=== PATIENT | male | born 1995 | race Caucasian/White ===

== ENCOUNTER 2018-02-02 09:55 | Emergency (ER) | payer SELFPAY ==
[2018-02-02] MEDS ORDERED: LIDOCAINE 1% MPF 2 ML AMPULE ONE ×2 (10:34→10:36)
--- NOTE | 2018-02-02 11:15 | RAD REPORT ---
EXAM DESCRIPTION: RAD - Hand Right 3 View - 02/02/2018 10:59 am CLINICAL HISTORY: laceration COMPARISON: Hand Right 3 View dated 08/27/2016; Hand Right 3 View dated 03/27/2013 FINDINGS: Soft tissue swelling affects the third and fourth digit. No fracture, dislocation or radio paque foreign body.
--- NOTE | 2018-02-02 11:35 | EDPHYS ---
Physician Documentation [facility] Name: Andrew Padilla Jr Age: 22 yrs Sex: Male : 1995 Arrival Date: 02/02/2018 Time: 10:07 Bed 15 Private MD: ED Physician Aaron Bautista HPI: 02/02 11:00 This 22 yrs old Male presents to ER via EMS with complaints of Laceration To pm1 Hand. 11:00 The patient has a laceration occurred at home. The laceration(s) is(are) located on the pm1 palmar aspect of proximal phalanx of right ring finger and palmar aspect of proximal phalanx of right little finger. Onset: The symptoms/episode began/occurred just prior to arrival. Associated signs and symptoms: Pertinent positives: numbness distal to laceration on 5th right finger, Pertinent negatives: deformity, suspected foreign body. The patient has not experienced similar symptoms in the past. The patient has not recently seen a physician. Patient stabbed a wall with his knife to test its sharpness and his hand slide down the knife and cut his 4th and 5th right fingers. Patient reports difficulty with bending the fingers lacerated.. Historical: - Allergies: 09:55 NKA; rb1 - Home Meds: 09:55 None [Active]; rb1 - PMHx: 09:55 None; rb1 - PSHx: 09:55 Appendectomy; ear surgery; rb1 - Immunization history:: Adult Immunizations up to date, Last tetanus immunization: up to date. - Social history:: Smoking status: Patient uses tobacco products, smokes one pack cigarettes per day. - Ebola Screening: : Patient negative for fever greater than or equal to 101.5 degrees Fahrenheit, and additional compatible Ebola Virus Disease symptoms. ROS: 11:00 Constitutional: Negative for fever, chills, and weight loss, Eyes: Negative for injury, pm1 pain, redness, and discharge, ENT: Negative for injury, pain, and discharge, Neck: Negative for injury, pain, and swelling, Cardiovascular: Negative for chest pain, palpitations, and edema, Respiratory: Negative for shortness of breath, cough, wheezing, and pleuritic chest pain, Abdomen/GI: Negative for abdominal pain, nausea, vomiting, diarrhea, and constipation, Back: Negative for injury and pain, : Negative for injury, bleeding, discharge, and swelling. 11:00 MS/extremity: Positive for decreased range of motion, laceration, of the palmar aspect of proximal phalanx of right ring finger and palmar aspect of proximal phalanx of right little finger, Negative for deformity. 11:00 Skin: Positive for laceration(s), of the palmar aspect of proximal phalanx of right little finger and palmar aspect of proximal phalanx of right ring finger. 11:00 Neuro: Positive for numbness, tip of right 5 th finger. Exam: 11:00 Constitutional: This is a well developed, well nourished patient who is awake, alert, pm1 and in no acute distress. Head/Face: Normocephalic, atraumatic. Eyes: Pupils equal round and reactive to light, extra-ocular motions intact. Lids and lashes normal. Conjunctiva and sclera are non-icteric and not injected. Cornea within normal limits. Periorbital areas with no swelling, redness, or edema. ENT: Nares patent. No nasal discharge, no septal abnormalities noted. Tympanic membranes are normal and external auditory canals are clear. Oropharynx with no redness, swelling, or masses, exudates, or evidence of obstruction, uvula midline. Mucous membranes moist. Neck: Trachea midline, no thyromegaly or masses palpated, and no cervical lymphadenopathy. Supple, full range of motion without nuchal rigidity, or vertebral point tenderness. No Meningismus. Chest/axilla: Normal chest wall appearance and motion. Nontender with no deformity. No lesions are appreciated. Cardiovascular: Regular rate and rhythm with a normal S1 and S2. No gallops, murmurs, or rubs. Normal PMI, no JVD. No pulse deficits. Respiratory: Lungs have equal breath sounds bilaterally, clear to auscultation and percussion. No rales, rhonchi or wheezes noted. No increased work of breathing, no retractions or nasal flaring. Abdomen/GI: Soft, non-tender, with normal bowel sounds. No distension or tympany. No guarding or rebound. No evidence of tenderness throughout. Back: No spinal tenderness. No costovertebral tenderness. Full range of motion. Skin: Warm, dry with normal turgor. Normal color with no rashes, no lesions, and no evidence of cellulitis. 11:00 Musculoskeletal/extremity: Extremities: grossly normal except: noted in the palmar aspect of proximal phalanx of right ring finger and palmar aspect of proximal phalanx of right little finger: laceration, Circulation is intact in all extremities. Sensation intact to right 4th and 5th fingers. Vital Signs: 09:55 BP 118 / 83; Pulse 115; Resp 17; Temp 98.6(O); Pulse Ox 98% on R/A; Weight 65.77 kg rb1 (R); Height 5 ft. 9 in. (175.26 cm) (R); Pain 3/10; 10:49 BP 110 / 75; Pulse 105; Resp 16; Pulse Ox 95% on R/A; rb1 11:40 BP 113 / 83; Pulse 113; Resp 17; Pulse Ox 96% on R/A; Pain 0/10; rb1 09:55 Body Mass Index 21.41 (65.77 kg, 175.26 cm) rb1 Laceration: 11:26 Wound Repair of 2cm ( 0.8in ) subcutaneous laceration to palmar aspect of proximal pm1 phalanx of right ring finger and palmar aspect of proximal phalanx of right little finger. Linear shaped.. Distal neuro/vascular/tendon intact. Anesthesia: Digital block administered with 5 mls of 1% lidocaine. Wound prep: Extensive cleansing with betadine by nurse, Wound irrigation with saline by me, Wound explored extensively, Copious irrigation. Skin closed with 9 4-0 Prolene using simple sutures and sterile technique. Dressed with Neosporin, 4x4's. Patient tolerated well. MDM: 10:09 Patient medically screened. pm1 11:26 Data reviewed: vital signs. Data interpreted: Pulse oximetry: on room air is 95 %. pm1 Interpretation: normal. Counseling: I had a detailed discussion with the patient and/or guardian regarding: the historical points, exam findings, and any diagnostic results supporting the discharge/admit diagnosis, radiology results, the need for outpatient follow up, for definitive care, a hand specialist, to return to the emergency department if symptoms worsen or persist or if there are any questions or concerns that arise at home. 11:26 ED course: Patient able to bend right 5th finger about 50 degrees at PIP and 4th finger pm1 about 50 degrees at DIP. MIP to 4th and 5th FROM. Patient potential lacerated tendon and/or nerve to 4th and 5th finger. Patient instructed on the need to follow up with hand surgery for further evaluation and treatment to regain range of motion if possible. 02/02 10:16 Order name: Hand Right 3 View XRAY; Complete Time: 11:25 pm1 02/02 10:16 Order name: Prolene, Sutures; Complete Time: 11:52 pm1 02/02 10:16 Order name: Dressing - Wound; Complete Time: 11:52 pm1 02/02 10:16 Order name: Gloves, Sterile; Complete Time: 10:49 pm1 02/02 10:16 Order name: Setup Suture Tray; Complete Time: 10:49 pm1 Administered Medications: 11:00 Drug: Lidocaine (1 %) 5 ml Volume: 5 ml; Route: Infiltration; rb1 11:52 Not Given (Pt. is up to date on shot; provider notified): Tetanus-Diphtheria Toxoid rb1 Adult 0.5 ml IM once Disposition: 02/03 06:23 Co-signature as Attending Physician, Aaron Bautista MD I agree with the assessment and lucy plan of care. Disposition: 02/02/18 11:34 Discharged to Home. Impression: Laceration without foreign body of right little finger without damage to nail, Laceration without foreign body of right ring finger without damage to nail. - Condition is Stable. - Discharge Instructions: Laceration Care, Adult. - Prescriptions for Keflex 500 mg Oral Capsule - take 1 capsule by ORAL route every 12 hours for 10 days; 20 capsule. - Medication Reconciliation Form, Thank You Letter, Antibiotic Education, Prescription Opioid Use form. - Follow up: Saran Atkinson MD; When: 2 - 3 days; Reason: Wound Recheck, Recheck today's complaints, Continuance of care, Re-evaluation by your physician. Follow up: Emergency Department; When: As needed; Reason: Worsening of condition. - Problem is new. - Symptoms have improved. Signatures: Dispatcher [employer] Aaron Snell MD MD cha Barber, Rebecca, RN RN rb1 Rafi Giordano NP MIS MANAGER pm1 Corrections: (The following items were deleted from the chart) 02/02 11:54 11:34 02/02/2018 11:34 Discharged to Home. Impression: Laceration without foreign body rb1 of right little finger without damage to nail; Laceration without foreign body of right ring finger without damage to nail. Condition is Stable. Forms are Medication Reconciliation Form, Thank You Letter, Antibiotic Education, Prescription Opioid Use. Follow up: Saran Atkinson; When: 2 - 3 days; Reason: Wound Recheck, Recheck today's complaints, Continuance of care, Re-evaluation by your physician. Follow up: Emergency Department; When: As needed; Reason: Worsening of condition. Problem is new. Symptoms have improved. pm1
--- NOTE | 2018-02-02 11:35 | ER ---
Nurse's Notes [facility] Name: Andrew Padilla Jr Age: 22 yrs Sex: Male : 1995 Arrival Date: 02/02/2018 Time: 10:07 Bed 15 Private MD: Diagnosis: Laceration without foreign body of right little finger without damage to nail;Laceration without foreign body of right ring finger without damage to nail Presentation: 02/02 09:55 Presenting complaint: EMS states: Pt. is 22 yr old, A \T\ O x 4. Pt. was stabbing a knife rb1 in the wall to see how sharp it was and his hand slipped cutting his third and fourth digits on the right hand. The blood had clotted by the time EMS arrived. Vital signs were stable BP 108/71, P 115, 98% RA, Pain 3/10. c/o numbness to the digits. NKA and no medical history. Transition of care: patient was not received from another setting of care. Complicating Factors: There are no complicating factors for this patient. Onset of symptoms was February 02, 2018. Risk Assessment: Do you want to hurt yourself or someone else? Patient reports no desire to harm self or others. Initial Sepsis Screen: Does the patient meet any 2 criteria? No. Patient's initial sepsis screen is negative. Does the patient have a suspected source of infection? No. Patient's initial sepsis screen is negative. Care prior to arrival: None. 09:55 Method Of Arrival: EMS: [facility] rb1 09:55 Acuity: [place] 3 rb1 Triage Assessment: 09:55 General: Appears in no apparent distress. comfortable, Behavior is calm, cooperative, rb1 Denies fever. Pain: Complains of pain in palmar aspect of proximal phalanx of right little finger and palmar aspect of proximal phalanx of right ring finger Pain currently is 3 out of 10 on a pain scale. Neuro: Level of Consciousness is awake, alert, obeys commands, Oriented to person, place, time, situation, Reports numbness in palmar aspect of proximal phalanx of right little finger and palmar aspect of proximal phalanx of right ring finger. Cardiovascular: Capillary refill < 3 seconds is brisk in bilateral fingers. Respiratory: Airway is patent Respiratory effort is even, unlabored, Respiratory pattern is regular, symmetrical. GI: No signs and/or symptoms were reported involving the gastrointestinal system. : No signs and/or symptoms were reported regarding the genitourinary system. Derm: Skin is pink, warm \T\ dry. Musculoskeletal: Range of motion: intact in all extremities. Injury Description: Laceration sustained to palmar aspect of proximal phalanx of right little finger and palmar aspect of proximal phalanx of right ring finger is contaminated, not bleeding. Historical: - Allergies: : NKA; rb1 - Home Meds: : None [Active]; rb1 - PMHx: : None; rb1 - PSHx: :55 Appendectomy; ear surgery; rb1 - Immunization history:: Adult Immunizations up to date, Last tetanus immunization: up to date. - Social history:: Smoking status: Patient uses tobacco products, smokes one pack cigarettes per day. - Ebola Screening: : Patient negative for fever greater than or equal to 101.5 degrees Fahrenheit, and additional compatible Ebola Virus Disease symptoms. Screenin:55 Abuse screen: Denies threats or abuse. Nutritional screening: No deficits noted. rb1 Tuberculosis screening: No symptoms or risk factors identified. Fall Risk None identified. Assessment: 09:55 General: See triage assessment. rb1 10:49 Reassessment: Patient appears in no apparent distress at this time. No changes from rb1 previously documented assessment. 11:40 Reassessment: Patient appears in no apparent distress at this time. Patient and/or rb1 family updated on plan of care and expected duration. Pain level reassessed. Patient is alert, oriented x 3, equal unlabored respirations, skin warm/dry/pink. Vital Signs: 09:55 BP 118 / 83; Pulse 115; Resp 17; Temp 98.6(O); Pulse Ox 98% on R/A; Weight 65.77 kg rb1 (R); Height 5 ft. 9 in. (175.26 cm) (R); Pain 3/10; 10:49 BP 110 / 75; Pulse 105; Resp 16; Pulse Ox 95% on R/A; rb1 11:40 BP 113 / 83; Pulse 113; Resp 17; Pulse Ox 96% on R/A; Pain 0/10; rb1 09:55 Body Mass Index 21.41 (65.77 kg, 175.26 cm) [facility] ED Course: :55 Arm band placed on left wrist. rb1 09:55 Patient has correct armband on for positive identification. Bed in low position. Call rb1 light in reach. Side rails up X 1. Pulse ox on. NIBP on. 10:07 Patient arrived in ED. rb1 10:07 Rafi Giordano NP is PHCP. pm1 10:07 Aaron Bautista MD is Attending Physician. pm1 10:12 Triage completed. rb1 10:49 Lupis Howard RN is Primary Nurse. rb1 10:56 X-ray completed. Portable x-ray completed in exam room. Patient tolerated procedure la2 well. 10:58 Hand Right 3 View XRAY In Process Unspecified. EDMS 11:33 Saran Atkinson MD is Referral Physician. pm1 11:54 No provider procedures requiring assistance completed. Patient did not have IV access rb1 during this emergency room visit. Administered Medications: 11:00 Drug: Lidocaine (1 %) 5 ml Volume: 5 ml; Route: Infiltration; rb1 11:52 Not Given (Pt. is up to date on shot; provider notified): Tetanus-Diphtheria Toxoid rb1 Adult 0.5 ml IM once Outcome: 11:34 Discharge ordered by MD. pm1 11:54 Discharged to home ambulatory. rb1 11:54 Condition: stable 11:54 Discharge instructions given to patient, Instructed on discharge instructions, follow up and referral plans. medication usage, Demonstrated understanding of instructions, follow-up care, medications, Prescriptions given X 1. 11:54 Patient left the ED. rb1 Signatures: Dispatcher [employer] EDVT Lupis Howard RN RN rb1 Rafi Giordano NP PULVERIZER OPERATOR pm1 Jenna Clarke la2
[2018-02-02 11:59] VITALS: TEMP 98.6
[2018-02-02 12:02] VITALS: BP 113/83; O2SAT 96
== END 2018-02-02 11:54 | disposition home or self-care (01) ==
LOC: ER 09:55
PROC: 0HQFXZZ Repair Right Hand Skin, External Approach (ICD-10-PCS; principal; 2018-02-02)
DX: S61.214A Laceration without foreign body of right ring finger without damage to nail, initial encounter (principal); S61.216A Laceration without foreign body of right little finger without damage to nail, initial encounter; F17.200 Nicotine dependence, unspecified, uncomplicated; W26.0XXA Contact with knife, initial encounter; Z23 Encounter for immunization
CPT/HCPCS: 99284; J2001

== ENCOUNTER 2018-09-14 00:57 | Emergency (ER) | payer SELFPAY ==
[2018-09-14 02:01] LABS: Absolute Lymphocytes (CBC) 1.8 K/uL (0.7-4.9); Absolute Monocytes 0.7 K/uL (0.1-1.3); Absolute Neutrophil 6.2 K/uL (1.8-8.0); Basophils % 0.5 % (0-1.3); Eosinophils % 0.7 % (0-4.4); Hematocrit 42.1 % (39.6-49.0); Lymphocytes % 20.8 % (15.3-44.8); Monocytes % 7.8 % (3.3-12.3); RBC Red Blood Cell Count 4.56 M/uL (4.33-5.43)
[2018-09-14] MEDS ORDERED: NA CHLORIDE 0.9% 1,000 ML ONE (02:06)
[2018-09-14 02:09] LABS: Protime INR 1.08
[2018-09-14 02:44] LABS: ALT/SGPT 21 U/L (12-78); AST/SGOT 10 U/L (15-37); Albumin 4.1 g/dL (3.4-5.0); Alkaline Phosphatase 61 U/L (45-117); BUN Blood Urea Nitrogen 18 mg/dL (7-18); Bicarbonate 26 mmol/L (21-32); Bilirubin Direct 0.2 mg/dL (0-0.2); Bilirubin Total 0.8 mg/dL (0.2-1.0); Glucose Level 93 mg/dL (74-106); Potassium 3.9 mmol/L (3.5-5.1); Protein, Total 7.2 g/dL (6.4-8.2); Sodium Level 145 mmol/L (136-145)
[2018-09-14 04:11] LABS: Barbiturates NEGATIVE (NEGATIVE); Benzodiazepines POSITIVE (NEGATIVE); Cocaine NEGATIVE (NEGATIVE); METHAMPHETAM POSITIVE (NEGATIVE); Methadone NEGATIVE (NEGATIVE); Opiates NEGATIVE (NEGATIVE); Phencyclidine NEGATIVE (NEGATIVE); THC Cannibis POSITIVE (NEGATIVE)
[2018-09-14 05:03] LABS: Urine Blood NEGATIVE (NEG); Urine Glucose NEGATIVE (NEG); Urine Protein 1+ (NEG); Urine Specific Gravity 1.025 (1.005-1.030)
[2018-09-14] MEDS ORDERED: MIDAZOLAM HCL 2 MG/2 ML INJ ONE (05:18)
--- NOTE | 2018-09-14 07:02 | ER ---
Nurse's Notes [facility] Name: Andrew Padilla Jr Age: 23 yrs Sex: Male : 1995 Arrival Date: 09/14/2018 Time: :01 Bed 17 Private MD: Diagnosis: Other psychoactive substance abuse with intoxication Presentation: 09/14 00:55 Presenting complaint: EMS states: "Patient had an argument with her girlfriend and took cc3 5 tablets of Xanax altogether at around 2230H last night; patient told the police officers that he intentionally did that so mental health health was contacted and was advised to bring the patient to the ER.". Transition of care: patient was not received from another setting of care. Onset of symptoms was September 13, 2018. Risk Assessment: Do you want to hurt yourself or someone else? Patient reports no desire to harm self or others. Initial Sepsis Screen: Does the patient meet any 2 criteria? No. Patient's initial sepsis screen is negative. Does the patient have a suspected source of infection? No. Patient's initial sepsis screen is negative. Care prior to arrival: None. 00:55 Method Of Arrival: EMS: [facility] cc3 00:55 Acuity: [place] 2 cc3 Triage Assessment: 00:55 General: Appears in no apparent distress. comfortable, Behavior is calm, cooperative. cc3 Pain: Denies pain. EENT: No signs and/or symptoms were reported regarding the EENT system. Neuro: Level of Consciousness is awake, alert, obeys commands, Oriented to person, place, time, situation, Appropriate for age. Cardiovascular: Patient's skin is warm and dry. Respiratory: Airway is patent Respiratory effort is even, unlabored, Respiratory pattern is regular, symmetrical. GI: Abdomen is flat. : No signs and/or symptoms were reported regarding the genitourinary system. Derm: noticed generalized dry healed wounds all over his body. Musculoskeletal: Circulation, motion, and sensation intact. Range of motion: intact in all extremities. Historical: - Allergies: 00:55 NKA; cc3 - PMHx: 07:02 None; gs - PSHx: 00:55 left wrist surgery; left ear surgery; cc3 00:55 Appendectomy; cc3 - Immunization history:: Adult Immunizations up to date. - Social history:: Smoking status: Patient uses tobacco products, smokes two packs cigarettes per day. smokes Marijuana. - Ebola Screening: : No symptoms or risks identified at this time. Screenin:55 Abuse screen: Denies threats or abuse. Denies injuries from another. Nutritional cc3 screening: No deficits noted. Tuberculosis screening: No symptoms or risk factors identified. Fall Risk Ambulatory Aid- None/Bed Rest/Nurse Assist (0 pts). Gait- Normal/Bed Rest/Wheelchair (0 pts) Mental Status- Oriented to own ability (0 pts). Assessment: 00:55 General: see triage assessment. cc3 01:18 Reassessment: Patient appears in no apparent distress at this time. Patient and/or cc3 family updated on plan of care and expected duration. Pain level reassessed. Patient is alert, oriented x 3, equal unlabored respirations, skin warm/dry/pink. Valuables taken by security. 02:20 Reassessment: Patient appears in no apparent distress at this time. Patient and/or cc3 family updated on plan of care and expected duration. Pain level reassessed. Patient is alert, oriented x 3, equal unlabored respirations, skin warm/dry/pink. 03:15 Reassessment: Patient appears in no apparent distress at this time. patient comfortably cc3 sleeping. 04:30 Reassessment: Patient appears in no apparent distress at this time. Patient and/or cc3 family updated on plan of care and expected duration. Pain level reassessed. Patient sleeping comfortably, no complaints noted. 05:41 Reassessment: Patient appears in no apparent distress at this time. Patient comfortably cc3 sleeping. 06:30 Reassessment: Patient appears in no apparent distress at this time. Patient and/or cc3 family updated on plan of care and expected duration. Pain level reassessed. Patient is alert, oriented x 3, equal unlabored respirations, skin warm/dry/pink. 07:00 Reassessment: Dr. Cazares discharged the patient home, IV cannula removed. Still to cc3 retrieve valuables from security. Psych: 00:55 Subjective: Patient's mood is sad, Delusions are denied, Hallucinations are denied cc3 Having thoughts of patient verbalized that he doesn't have intentions of hurting himself or others but EMS said that as per police officers the patient told them that he intentionally took 5 tabs of Xanax. Objective: Patient is cooperative, Speech is normal, Affect is appropriate. Interventions: Removed personal items and placed in bag. Patient placed in hospital gown. Searched person for dangerous items. Urine collected and sent for urine drug test. Belonging list filled out. Suicide Risk Assessment: Sad Person Scale: Sex of patient: Male: Score 1 point. Age of patient: Score 1 point if patient 15-34. Depression: Score 1 point if signs of depression are present. Previous Attempt: Score 0 point if patient has not previously attempted suicide. Substance Abuse: Score 1 point if patient abuses alcohol or drugs. Rational Thinking: Score 0 point if patient has rational thinking. Social Support: Score 0 if social support is present/available. Organized Plan: Score 0 if patient did not have an organized plan in place. Relationship: Score 1 point if patient is , , , or for a single male Chronic Sickness: Score 0 point if patient does not have a chronic illness, debilitating, or severe disorder. TOTAL POINTS: If total points are 5-6, proposed clinical action is to strongly consider hospitalization, depending upon confidence in the follow-up arrangement. Implement suicide precautions. Safety Checks: Personal items have been removed. Door is open. No visitors are present at this time. sitter available. Patient uses marijuana patient admitted he smoked Marijuana previously Patient uses methamphetamines Patient admitted he previously used. Patient uses tobacco Frequency daily. Vital Signs: 00:55 BP 104 / 73; Pulse 96; Resp 18 S; Temp 98.1(O); Pulse Ox 99% on R/A; Weight 58.97 kg cc3 (R); Height 5 ft. 9 in. (175.26 cm) (R); 03:15 BP 95 / 53; Pulse 76; Resp 17 S; Pulse Ox 97% on R/A; cc3 04:15 BP 92 / 49; Pulse 75; Resp 15 S; Pulse Ox 96% on R/A; cc3 05:15 BP 94 / 52; Pulse 74; Resp 15 S; Pulse Ox 97% on R/A; cc3 00:55 Body Mass Index 19.20 (58.97 kg, 175.26 cm) cc3 ED Course: 00:55 Patient has correct armband on for positive identification. Placed in gown. Bed in low cc3 position. Call light in reach. Side rails up X2. Pulse ox on. NIBP on. 00:55 Arm band placed on left wrist. Patient notified of wait time. cc3 01:01 Patient arrived in ED. ms 01:01 Nik Cazares MD is Attending Physician. gs 01:04 Krys Cadena is Primary Nurse. cc3 01:15 Safety checks: Items removed: yes. Door open/sign placed on door: Patient placed in ag4 hallway bed. yes. Family/friend present: no. Sitter present: Yes. 01:29 Triage completed. cc3 01:30 Safety checks: Items removed: yes. Door open/sign placed on door: Patient placed in ag4 hallway bed. yes. Family/friend present: no. Sitter present: Yes. 01:45 Safety checks: Items removed: yes. Door open/sign placed on door: Patient placed in ag4 hallway bed. yes. Family/friend present: no. Sitter present: Yes. 01:48 Inserted saline lock: 20 gauge in right antecubital area, using aseptic technique. ag4 Blood collected. 02:00 Safety checks: Items removed: yes. Door open/sign placed on door: Patient placed in ag4 hallway bed. yes. Family/friend present: no. Sitter present: Yes. 02:15 Safety checks: Items removed: yes. Door open/sign placed on door: Patient placed in ag4 hallway bed. yes. Family/friend present: no. Sitter present: Yes. 02:30 Safety checks: Items removed: yes. Door open/sign placed on door: Patient placed in ag4 hallway bed. yes. Family/friend present: no. Sitter present: Yes. 02:45 Safety checks: Items removed: yes. Door open/sign placed on door: Patient placed in ag4 hallway bed. yes. Family/friend present: no. Sitter present: Yes. 03:00 Safety checks: Items removed: yes. Door open/sign placed on door: Patient placed in ag4 hallway bed. yes. Family/friend present: no. Sitter present: Yes. 03:15 Safety checks: Items removed: yes. Door open/sign placed on door: Patient placed in ag4 hallway bed. yes. Family/friend present: no. Sitter present: Yes. 03:30 Safety checks: Items removed: yes. Door open/sign placed on door: Patient placed in ag4 hallway bed. yes. Family/friend present: no. Sitter present: Yes. 03:45 Safety checks: Items removed: yes. Door open/sign placed on door: Patient placed in ag4 hallway bed. yes. Family/friend present: no. Sitter present: Yes. 04:00 Safety checks: Items removed: yes. Door open/sign placed on door: Patient placed in ag4 hallway bed. yes. Family/friend present: no. Sitter present: Yes. 04:15 Safety checks: Items removed: yes. Door open/sign placed on door: Patient placed in ag4 hallway bed. yes. Family/friend present: no. Sitter present: Yes. 04:30 Safety checks: Items removed: yes. Door open/sign placed on door: Patient placed in ag4 hallway bed. yes. Family/friend present: no. Sitter present: Yes. 04:45 Safety checks: Items removed: yes. Door open/sign placed on door: Patient placed in ag4 hallway bed. yes. Family/friend present: no. Sitter present: Yes. 05:00 Safety checks: Items removed: yes. Door open/sign placed on door: Patient placed in ag4 hallway bed. yes. Family/friend present: no. Sitter present: Yes. 05:15 Safety checks: Items removed: yes. Door open/sign placed on door: Patient placed in ag4 hallway bed. yes. Family/friend present: no. Sitter present: Yes. 05:30 Safety checks: Items removed: yes. Door open/sign placed on door: Patient placed in ag4 hallway bed. yes. Family/friend present: no. Sitter present: Yes. 05:45 Safety checks: Items removed: yes. Door open/sign placed on door: Patient placed in ag4 hallway bed. yes. Family/friend present: no. Sitter present: Yes. 06:00 Safety checks: Items removed: yes. Door open/sign placed on door: Patient placed in ag4 hallway bed. yes. Family/friend present: no. Sitter present: Yes. 06:15 Safety checks: Items removed: yes. Door open/sign placed on door: Patient placed in ag4 hallway bed. yes. Family/friend present: no. Sitter present: Yes. 06:30 Safety checks: Items removed: yes. Door open/sign placed on door: Patient placed in ag4 hallway bed. yes. Family/friend present: no. Sitter present: Yes. 06:45 Safety checks: Items removed: yes. Door open/sign placed on door: Patient placed in ag4 hallway bed. yes. Family/friend present: no. Sitter present: Yes. 07:00 Report given to LUNA Ireland. cc3 07:22 No provider procedures requiring assistance completed. IV discontinued, intact, em bleeding controlled, No redness/swelling at site. Pressure dressing applied. Administered Medications: 01:45 Drug: NS 0.9% 1000 ml Route: IV; Rate: 1 bolus; Site: right antecubital; cc3 02:45 Follow up: Response: No adverse reaction; IV Status: Completed infusion; IV Intake: cc3 1000ml Intake: 02:45 IV: 1000ml; Total: 1000ml. cc3 Outcome: 07:01 Discharge ordered by . 07:22 Discharged to home ambulatory. em 07:22 Condition: good 07:22 Discharge instructions given to patient, Instructed on discharge instructions, follow up and referral plans. Demonstrated understanding of instructions, follow-up care. 07:30 Patient left the ED. em Signatures: Beka Bradley, LUNA PAPER BALING MACHINE OPERATORShantell Estrella ms, Gregory, MD MD gs Cordel, Krys cc3 Skip Kim ag4 Corrections: (The following items were deleted from the chart) 01:29 00:55 BP 104 / 73; Pulse 96bpm; Resp 19bpm; Spontaneous; Pulse Ox 99% RA; Temp 98.1F cc3 Oral; cc3 04:31 03:15 Reassessment: Patient and/or family updated on plan of care and expected cc3 duration. Pain level reassessed. cc3 04:49 01:18 Reassessment: Patient appears in no apparent distress at this time. Patient cc3 and/or family updated on plan of care and expected duration. Pain level reassessed. Patient is alert, oriented x 3, equal unlabored respirations, skin warm/dry/pink. cc3 04:50 03:15 Reassessment: Patient and/or family updated on plan of care and expected cc3 duration. Pain level reassessed. patient sleeping. cc3 04:52 03:15 Reassessment: Patient and/or family updated on plan of care and expected cc3 duration. Pain level reassessed. patient sleeping. cc3 05:40 00:55 BP 104 / 73; Pulse 96bpm; Resp 19bpm; Spontaneous; Pulse Ox 99% RA; Temp 98.1F cc3 Oral; 58.97 kg Reported; Height 5 ft. 9 in. Reported; BMI: 19.2; cc3 05:40 03:15 BP 95 / 53; Pulse 76bpm; Resp 19bpm; Spontaneous; Pulse Ox 97% RA; cc3 cc3 05:40 04:15 BP 92 / 49; Pulse 75bpm; Resp 18bpm; Spontaneous; Pulse Ox 96% RA; cc3 cc3
--- NOTE | 2018-09-14 07:02 | EDPHYS ---
Physician Documentation [facility] Name: Andrew Padilla Jr Age: 23 yrs Sex: Male : 1995 Arrival Date: 09/14/2018 Time: 01:01 Bed 17 Private MD: ED Physician Nik Cazares HPI: 09/14 05:51 This 23 yrs old Male presents to ER via EMS with complaints of Suicidal gs Ideation. 05:51 The patient presents to the emergency department with depression, a history of gs substance abuse, suicide ideation, but the patient has no formulated plan, si with quasi suicide note. Onset: The symptoms/episode began/occurred gradually, yesterday. Severity of symptoms: At their worst the symptoms were moderate in the emergency department the symptoms are unchanged. The patient has experienced similar episodes in the past, a few times. The patient has not recently seen a physician. Historical: - Allergies: 00:55 NKA; cc3 - PMHx: 07:02 None; gs - PSHx: 00:55 left wrist surgery; left ear surgery; cc3 00:55 Appendectomy; cc3 - Immunization history:: Adult Immunizations up to date. - Social history:: Smoking status: Patient uses tobacco products, smokes two packs cigarettes per day. smokes Marijuana. - Ebola Screening: : No symptoms or risks identified at this time. ROS: 05:51 All other systems are negative. gs Exam: 05:51 Head/Face: Normocephalic, atraumatic. Eyes: Pupils equal round and reactive to light, gs extra-ocular motions intact. Lids and lashes normal. Conjunctiva and sclera are non-icteric and not injected. Cornea within normal limits. Periorbital areas with no swelling, redness, or edema. ENT: Nares patent. No nasal discharge, no septal abnormalities noted. Tympanic membranes are normal and external auditory canals are clear. Oropharynx with no redness, swelling, or masses, exudates, or evidence of obstruction, uvula midline. Mucous membranes moist. Neck: Trachea midline, no thyromegaly or masses palpated, and no cervical lymphadenopathy. Supple, full range of motion without nuchal rigidity, or vertebral point tenderness. No Meningismus. Chest/axilla: Normal chest wall appearance and motion. Nontender with no deformity. No lesions are appreciated. Cardiovascular: Regular rate and rhythm with a normal S1 and S2. No gallops, murmurs, or rubs. Normal PMI, no JVD. No pulse deficits. Respiratory: Lungs have equal breath sounds bilaterally, clear to auscultation and percussion. No rales, rhonchi or wheezes noted. No increased work of breathing, no retractions or nasal flaring. Abdomen/GI: Soft, non-tender, with normal bowel sounds. No distension or tympany. No guarding or rebound. No evidence of tenderness throughout. Back: No spinal tenderness. No costovertebral tenderness. Full range of motion. Skin: Warm, dry with normal turgor. Normal color with no rashes, no lesions, and no evidence of cellulitis. MS/ Extremity: Pulses equal, no cyanosis. Neurovascular intact. Full, normal range of motion. Neuro: Awake and alert, GCS 15, oriented to person, place, time, and situation. Cranial nerves II-XII grossly intact. Motor strength 5/5 in all extremities. Sensory grossly intact. Cerebellar exam normal. Normal gait. 05:51 Constitutional: The patient appears alert, awake. 05:51 Psych: Behavior/mood is suicidal, depressed, Affect is calm, Patient having thoughts of suicide. Denies suicidal plan. quasi letters asking family to forgive him for what he may do Vital Signs: 00:55 BP 104 / 73; Pulse 96; Resp 18 S; Temp 98.1(O); Pulse Ox 99% on R/A; Weight 58.97 kg cc3 (R); Height 5 ft. 9 in. (175.26 cm) (R); 03:15 BP 95 / 53; Pulse 76; Resp 17 S; Pulse Ox 97% on R/A; cc3 04:15 BP 92 / 49; Pulse 75; Resp 15 S; Pulse Ox 96% on R/A; cc3 05:15 BP 94 / 52; Pulse 74; Resp 15 S; Pulse Ox 97% on R/A; cc3 00:55 Body Mass Index 19.20 (58.97 kg, 175.26 cm) cc3 MDM: 01:19 Patient medically screened. 05:51 Differential diagnosis: drug withdrawal. depression. Data reviewed: vital signs, nurses gs notes, lab test result(s). Response to treatment: the patient's symptoms have mildly improved after treatment. 06:58 ED course: pt now awake stated letters were not intimating suicide but saying he was gs sorry to his parents and girlfriend for his behavior and had no intention of hurting himself he would like drug dependence counseling, will discharge. 09/14 01:19 Order name: Acetaminophen 09/14 01:19 Order name: Basic Metabolic Panel 09/14 01:19 Order name: CBC with Diff 09/14 01:19 Order name: ETOH Level; Complete Time: 05:56 09/14 01:19 Order name: Hepatic Function; Complete Time: 05:56 09/14 01:19 Order name: PT-INR; Complete Time: 05:56 09/14 01:19 Order name: Salicylate; Complete Time: 05:56 09/14 01:19 Order name: Urine Drug Screen; Complete Time: 05:56 gs 09/14 01:20 Order name: Acetaminophen Level; Complete Time: 05:56 EDMS 09/14 01:20 Order name: Basic Metabolic Panel; Complete Time: 05:56 EDMS 09/14 01:20 Order name: CBC with Automated Diff; Complete Time: 05:56 EDMS 09/14 04:40 Order name: Urine Dipstick--Ancillary (enter results); Complete Time: 05:56 cm6 09/14 01:19 Order name: EKG - Nurse/Tech; Complete Time: 01:37 09/14 01:19 Order name: IV Saline Lock; Complete Time: 01:53 09/14 01:19 Order name: Labs collected and sent; Complete Time: 01:53 09/14 01:19 Order name: Urine Dipstick-Ancillary (obtain specimen); Complete Time: 04:02 Administered Medications: 01:45 Drug: NS 0.9% 1000 ml Route: IV; Rate: 1 bolus; Site: right antecubital; cc3 02:45 Follow up: Response: No adverse reaction; IV Status: Completed infusion; IV Intake: cc3 1000ml Disposition: 09/14/18 07:01 Discharged to Home. Impression: Other psychoactive substance abuse with intoxication. - Condition is Stable. - Discharge Instructions: Stimulant Use Disorder-Amphetamines. - Medication Reconciliation Form, Thank You Letter, Antibiotic Education, Prescription Opioid Use form. - Follow up: Private Physician; When: 2 - 3 days; Reason: Re-evaluation by your physician. Signatures: Dispatcher [employer] Beka Radford, LIGHT OUT EXAMINER LIGHT OUT EXAMINER Nik Cobb MD MD gs Cordel, Charlene cc3 Corrections: (The following items were deleted from the chart) 07:30 07:01 09/14/2018 07:01 Discharged to Home. Impression: Other psychoactive substance em abuse with intoxication. Condition is Stable. Forms are Medication Reconciliation Form, Thank You Letter, Antibiotic Education, Prescription Opioid Use. Follow up: Private Physician; When: 2 - 3 days; Reason: Re-evaluation by your physician. gs
[2018-09-14 07:37] VITALS: BP 94/52; O2SAT 97
== END 2018-09-14 07:30 | disposition home or self-care (01) ==
LOC: ER 00:57
DX: F19.129 Other psychoactive substance abuse with intoxication, unspecified (principal); R45.851 Suicidal ideations; F17.210 Nicotine dependence, cigarettes, uncomplicated
CPT/HCPCS: 36415; 80048; 80076; 80307; 80320; 80329; 81003; 85025; 85610; 96360; 99284; J2250; J7030

== ENCOUNTER 2021-12-03 09:46 | Emergency (ER) | payer SELFPAY ==
[2021-12-03] MEDS ORDERED: DIPHENHYDRAMINE 50 MG/ML VIAL ONE (10:23)
[2021-12-03] MEDS ORDERED: NA CHLORIDE 0.9% 1,000 ML ONE (10:24)
[2021-12-03] MEDS ORDERED: FAMOTIDINE 20 MG/2 ML VIAL IV ONE (10:24)
[2021-12-03] MEDS ORDERED: dexAMETHasone 10 MG/ML VIAL ONE (10:24)
--- NOTE | 2021-12-03 11:40 | ER ---
Nurse's Notes [facility] Name: Andrew Padilla Jr Age: 26 yrs Sex: Male : 1995 Arrival Date: 12/03/2021 Time: 09:51 Bed 6 Private MD: Diagnosis: Urticaria, unspecified Presentation: 12/03 09:52 Chief complaint: Patient states: Rash to his left arm, left leg, right arm, right lower ww leg, lower abdominal that started 3 days ago and is getting better. Coronavirus screen: Client denies travel out of the [place] in the last 14 days. Ebola Screen: Patient denies travel to an Ebola-affected area in the 21 days before illness onset. Initial Sepsis Screen: Does the patient meet any 2 criteria? No. Patient's initial sepsis screen is negative. Does the patient have a suspected source of infection? No. Patient's initial sepsis screen is negative. Risk Assessment: Do you want to hurt yourself or someone else? Patient reports no desire to harm self or others. Onset of symptoms is unknown. 09:52 Method Of Arrival: EMS: [facility] 09:52 Acuity: [place]AR[place] 4 ww Triage Assessment: 09:53 General: Appears in no apparent distress. Behavior is cooperative. Pain: Complains of ww pain in where the rash is. Neuro: Level of Consciousness is awake, alert, obeys commands, Oriented to person, place, time, situation, Moves all extremities. Speech is normal. Cardiovascular: Capillary refill < 3 seconds Patient's skin is warm and dry. Chest pain is denied. Respiratory: Airway is patent Respiratory effort is even, unlabored, Respiratory pattern is regular, symmetrical. GI: No signs and/or symptoms were reported involving the gastrointestinal system. Derm: Skin is healthy with good turgor, Rash noted that is itchy, red, on abdomen, right arm, left arm, right leg and left leg. Historical: - Allergies: 09:53 NKA; ww - Home Meds: :53 Xanax Oral [Active]; ww - PMHx: 09:53 Anxiety; PTSD; depression; ww - Immunization history:: Adult Immunizations up to date. - Social history:: Smoking status: Patient reports the use of cigarette tobacco products, smokes one-half pack cigarettes per day. Screenin:55 Abuse screen: Denies threats or abuse. Nutritional screening: No deficits noted. ww Tuberculosis screening: No symptoms or risk factors identified. Fall Risk None identified. Assessment: 09:55 Reassessment: Patient appears in no apparent distress at this time. No changes from ww previously documented assessment. Patient and/or family updated on plan of care and expected duration. Pain level reassessed. Patient is alert, oriented x 3, equal unlabored respirations, skin warm/dry/pink. see triage assessment. 10:40 Reassessment: Patient appears in no apparent distress at this time. No changes from ww previously documented assessment. Patient and/or family updated on plan of care and expected duration. Pain level reassessed. Patient is alert, oriented x 3, equal unlabored respirations, skin warm/dry/pink. 11:54 Reassessment: Patient appears in no apparent distress at this time. No changes from ww previously documented assessment. Patient and/or family updated on plan of care and expected duration. Pain level reassessed. Patient is alert, oriented x 3, equal unlabored respirations, skin warm/dry/pink. Vital Signs: 09:52 BP 106 / 65; Pulse 103; Resp 16; Temp 97.5; Pulse Ox 97% ; Weight 81.65 kg (R); Height mb7 5 ft. 8 in. (172.72 cm) (R); 10:30 BP 111 / 62; Pulse 77; Resp 18; Pulse Ox 98% on R/A; ww 11:54 BP 118 / 64; Pulse 71; Resp 16; Pulse Ox 99% on R/A; ww 09:52 Body Mass Index 27.37 (81.65 kg, 172.72 cm) [facility] ED Course: 09:51 Patient arrived in ED. em1 09:52 Nay Zhou, SCOTT is Primary Nurse. ww 09:52 Rafi Giordano NP is PHCP. pm1 09:52 Anna Flor MD is Attending Physician. pm1 09:52 Patient has correct armband on for positive identification. Bed in low position. Call mb light in reach. Side rails up X 1. Door closed. Noise minimized. Warm blanket given. 09:53 Triage completed. ww 09:55 Arm band placed on. ww 10:07 Inserted saline lock: 20 gauge in right antecubital area, using aseptic technique. mb7 11:55 No provider procedures requiring assistance completed. IV discontinued, intact, ww bleeding controlled, No redness/swelling at site. Pressure dressing applied. Administered Medications: 10:20 Drug: Decadron - Dexamethasone 10 mg Route: IVP; Site: right antecubital; ww 11:59 Follow up: Response: No adverse reaction aa5 10:20 Drug: NS 0.9% 1000 ml Route: IV; Rate: 1000 ml; Site: right antecubital; ww 11:59 Follow up: IV Status: Completed infusion; IV Intake: 1000ml aa5 10:23 Drug: Benadryl (diphenhydrAMINE) 25 mg Route: IVP; Site: right antecubital; ww 11:59 Follow up: Response: No adverse reaction aa5 10:27 Drug: Pepcid (famotidine) 20 mg Route: IVP; Site: right antecubital; ww 11:59 Follow up: Response: No adverse reaction aa5 Medication: 11:59 VIS not applicable for this client. aa5 Intake: 11:59 IV: 1000ml; Total: 1000ml. aa5 Outcome: 11:40 Discharge ordered by MD. pm1 11:56 Discharged to home ambulatory. ww 11:56 Condition: stable 11:56 Discharge instructions given to patient, Instructed on discharge instructions, follow up and referral plans. medication usage, safety practices, Demonstrated understanding of instructions, follow-up care, medications. 12:00 Patient left the ED. aa5 Signatures: Saul Chanel em1 Lennie Harris, RN RN aa5 Rafi Giordano, LENIN PROPERTY DEVELOPER pm1 Maria Antonia Chatman mb7 Nay Zhou, RN RN ww Corrections: (The following items were deleted from the chart) 12:00 11:59 Reassessment: Patient is alert, oriented x 3, equal unlabored respirations, skin aa5 warm/dry/pink. aa5
--- NOTE | 2021-12-03 11:41 | EDPHYS ---
Physician Documentation [facility] Name: Andrew Padilla Jr Age: 26 yrs Sex: Male : 1995 Arrival Date: 12/03/2021 Time: 09:51 Bed 6 Private MD: ED Physician Anna Flor HPI: 12/03 10:27 This 26 yrs old Male presents to ER via EMS with complaints of rash. pm1 10:27 The patient's rash thought to be caused by an unknown cause. The rash is located on the pm1 abdomen, right arm, left arm, right leg and left leg. The rash can be described as raised, urticarial. 10:27 Onset: The symptoms/episode began/occurred 3 day(s) ago. Associated signs and symptoms: pm1 Pertinent positives: itching, Pertinent negatives: fever. Severity of symptoms: in the emergency department the symptoms have improved. Treatment given at home: none. The patient has not experienced similar symptoms in the past. The patient has not recently seen a physician. Historical: - Allergies: 09:53 NKA; ww - Home Meds: 09:53 Xanax Oral [Active]; ww - PMHx: 09:53 Anxiety; PTSD; depression; ww - Immunization history:: Adult Immunizations up to date. - Social history:: Smoking status: Patient reports the use of cigarette tobacco products, smokes one-half pack cigarettes per day. ROS: 10:27 Constitutional: Negative for fever, chills, and weight loss, Cardiovascular: Negative pm1 for chest pain, palpitations, and edema, Respiratory: Negative for shortness of breath, cough, wheezing, and pleuritic chest pain, Abdomen/GI: Negative for abdominal pain, nausea, vomiting, diarrhea, and constipation, MS/Extremity: Negative for injury and deformity. 10:27 Neuro: Negative for headache, weakness, numbness, tingling, and seizure. 10:27 Skin: Positive for rash, of the abdomen, right arm, left arm, right leg and left leg. 10:27 All other systems are negative. Exam: 10:27 Constitutional: This is a well developed, well nourished patient who is awake, alert, pm1 and in no acute distress. Head/Face: Normocephalic, atraumatic. 10:27 Back: No spinal tenderness. No costovertebral tenderness. Full range of motion. Skin: Warm, dry with normal turgor. Normal color with no rashes, no lesions, and no evidence of cellulitis. MS/ Extremity: Pulses equal, no cyanosis. Neurovascular intact. Full, normal range of motion. 10:27 Eyes: Exam is negative for acute changes, Periorbital structures: appear normal, Extraocular movements: no acute changes, Conjunctiva: normal. 10:27 ENT: Exam is negative for acute changes, Mouth: no acute changes, Lips: normal, moist, Oral mucosa: normal, pink and intact, moist. 10:27 Cardiovascular: Exam negative for acute changes, Rate: normal, Rhythm: regular, Pulses: no pulse deficits are appreciated, Heart sounds: normal, normal S1and S2. 10:27 Respiratory: Exam negative for acute changes, respiratory distress, shortness of breath, Breath sounds: are clear throughout. 10:27 Abdomen/GI: Exam negative for acute changes, Inspection: abdomen appears normal, Palpation: abdomen is soft and non-tender, in all quadrants. 10:27 Neuro: Exam negative for acute changes, Orientation: is normal, Mentation: is normal, Motor: is normal, moves all fours. Vital Signs: 09:52 BP 106 / 65; Pulse 103; Resp 16; Temp 97.5; Pulse Ox 97% ; Weight 81.65 kg (R); Height mb7 5 ft. 8 in. (172.72 cm) (R); 10:30 BP 111 / 62; Pulse 77; Resp 18; Pulse Ox 98% on R/A; ww 11:54 BP 118 / 64; Pulse 71; Resp 16; Pulse Ox 99% on R/A; ww 09:52 Body Mass Index 27.37 (81.65 kg, 172.72 cm) mb7 MDM: 09:52 Patient medically screened. pm1 11:36 Data reviewed: vital signs. Data interpreted: Pulse oximetry: on room air is 97 %. pm1 Interpretation: normal. Counseling: I had a detailed discussion with the patient and/or guardian regarding: the historical points, exam findings, and any diagnostic results supporting the discharge/admit diagnosis, the need for outpatient follow up, to return to the emergency department if symptoms worsen or persist or if there are any questions or concerns that arise at home. 11:36 ED course: Patient's rash and itching improved with medications given in the ER. pm1 Patient with possible mild cellulitis present to left forearm due to the itching and scratching over the past three days. Will cover with abx along with treatment for urticaria. 12/03 10:00 Order name: IV Saline Lock; Complete Time: 10:06 pm1 Administered Medications: 10:20 Drug: Decadron - Dexamethasone 10 mg Route: IVP; Site: right antecubital; ww 11:59 Follow up: Response: No adverse reaction aa5 10:20 Drug: NS 0.9% 1000 ml Route: IV; Rate: 1000 ml; Site: right antecubital; ww 11:59 Follow up: IV Status: Completed infusion; IV Intake: 1000ml aa5 10:23 Drug: Benadryl (diphenhydrAMINE) 25 mg Route: IVP; Site: right antecubital; ww 11:59 Follow up: Response: No adverse reaction aa5 10:27 Drug: Pepcid (famotidine) 20 mg Route: IVP; Site: right antecubital; ww 11:59 Follow up: Response: No adverse reaction aa5 Disposition: 18:03 Co-signature as Attending Physician, Anna Flor MD. ma2 Disposition Summary: 12/03/21 11:40 Discharge Ordered Location: Home pm1 Problem: new pm1 Symptoms: have improved pm1 Condition: Stable pm1 Diagnosis - Urticaria, unspecified pm1 Followup: pm1 - With: Emergency Department - When: As needed - Reason: Worsening of condition Followup: pm1 - With: Private Physician - When: 2 - 3 days - Reason: Recheck today's complaints, Continuance of care, Re-evaluation by your physician Discharge Instructions: - Discharge Summary Sheet pm1 - Hives pm1 - Rash, Adult pm1 Forms: - Medication Reconciliation Form pm1 - Thank You Letter pm1 - Antibiotic Education pm1 - Prescription Opioid Use pm1 Prescriptions: - Benadryl 25 mg Oral Capsule - take 1 capsule by ORAL route every 6 hours As needed; 30 tablet; Refills: 0, pm1 Product Selection Permitted - Pepcid 20 mg Oral Tablet - take 1 tablet by ORAL route every 12 hours for 10 days; 20 tablet; Refills: 0, pm1 Product Selection Permitted - Cephalexin 500 mg Oral Capsule - take 1 capsule by ORAL route every 6 hours for 10 days; 40 capsule; Refills: 0, pm1 Product Selection Permitted - Prednisone 20 mg Oral Tablet - take 3 tablets by ORAL route once daily for 5 days; 15 tablet; Refills: 0, pm1 Product Selection Permitted Signatures: Rafi Giordnao, LENIN ROLL ON WORKER pm1 Anna Flor MD MD ma2 Nay Zhou RN RN ww Lennie Harris RN aa5
[2021-12-03 12:08] VITALS: TEMP 97.5
[2021-12-03 12:11] VITALS: BP 118/64; O2SAT 99
== END 2021-12-03 12:00 | disposition home or self-care (01) ==
LOC: ER 09:46
DX: L50.9 Urticaria, unspecified (principal)
CPT/HCPCS: 96361; 96374; 96375; 99283; J1100; J1200; J3490; J7030

== ENCOUNTER 2024-02-04 19:53 | Emergency (ER) | payer SELFPAY ==
[2024-02-04] MEDS ORDERED: FAMOTIDINE 20 MG TAB ONE (20:08)
[2024-02-04] MEDS ORDERED: dexAMETHasone 10 MG/ML VIAL ONE (20:08)
--- NOTE | 2024-02-04 20:09 | ER ---
Nurse's Notes [facility] Name: Andrew Padilla Jr Age: 28 yrs Sex: Male : 1995 Arrival Date: 02/04/2024 Time: 19:53 Bed Treatment Private MD: Diagnosis: Allergic contact dermatitis due to plants, except food Presentation: 02/03 20:02 Chief complaint: Patient states: got into poison luh x3 days ago. no relief with OTC kc6 meds or ointment. Coronavirus screen: At this time, the client does not indicate any symptoms associated with coronavirus-19. Ebola Screen: No symptoms or risks identified at this time. Initial Sepsis Screen: Does the patient meet any 2 criteria? No. Patient's initial sepsis screen is negative. Does the patient have a suspected source of infection? No. Patient's initial sepsis screen is negative. Risk Assessment: Do you want to hurt yourself or someone else? Patient reports no desire to harm self or others. Onset of symptoms was February 04, 2024. 20:02 Method Of Arrival: Ambulatory [facility] 20:02 Acuity: [place] 4 kc6 Historical: - Allergies: 20:05 NKA; kc6 - PMHx: 20:05 Anxiety; Depression; PTSD; kc6 - PSHx: 20:05 Appendectomy; kc6 - Immunization history:: Client reports receiving the 2nd dose of the Covid vaccine, Flu vaccine is up to date. - Infectious Disease History:: Denies. - Social history:: Smoking status: Patient reports the use of cigarette tobacco products, smokes one pack cigarettes per day. Reported history of juuling and/or vaping. Screenin:17 [facility] ED Fall Risk Assessment (Adult) History of falling in the last 3 months, me1 including since admission No falls in past 3 months (0 pts) Confusion or Disorientation No (0 pts) Intoxicated or Sedated No (0 pts) Impaired Gait No (0 pts) Mobility Assist Device Used No (0 pt) Altered Elimination No (0 pt) Score/Fall Risk Level 0 - 2 = Low Risk Maintained a safe environment, Provided non-skid footwear, Hourly rounding (assess needs \T\ fall precautionary measures) done. Abuse screen: Denies threats or abuse. Nutritional screening: No deficits noted. Tuberculosis screening: No symptoms or risk factors identified. Assessment: 20:17 General: Appears uncomfortable, well groomed, well developed, well nourished, Behavior me1 is calm, cooperative, appropriate for age, Reports got into poison luh 3 days ago. No relief with OTC meds and ointments. Pain: Denies pain. Neuro: Level of Consciousness is awake, alert, obeys commands, Oriented to person, place, time, situation, Appropriate for age. Cardiovascular: Patient's skin is warm and dry. Respiratory: Airway is patent Trachea midline Respiratory effort is even, unlabored, Respiratory pattern is regular, symmetrical. GI: No signs and/or symptoms were reported involving the gastrointestinal system. : No signs and/or symptoms were reported regarding the genitourinary system. EENT: No signs and/or symptoms were reported regarding the EENT system. Derm: Skin is healthy with good turgor, Skin is pink, warm \T\ dry. Rash noted that is red, raised, vesicular, on right arm, left arm, right leg and left leg. Musculoskeletal: No signs and/or symptoms reported regarding the musculoskeletal system. Vital Signs: 20:02 BP 121 / 72; Pulse 85; Resp 17 S; Temp 98.4(O); Weight 86.18 kg (R); Height 5 ft. 8 in. kc6 (R); Pain 0/10; 20:29 BP 126 / 86; Pulse 81; Resp 16; Pulse Ox 99% ; me1 20:02 Body Mass Index 28.89 (86.18 kg, 172.72 cm) kc6 20:02 Pain Scale: Adult kc ED Course: 19:56 Patient arrived in ED. ra3 19:59 Snehal Alford FNP-C [facility] kb 19:59 Blaze Israel MD is Attending Physician. kb 20:05 Triage completed. kc6 20:05 Arm band placed on. kc6 20:09 Emmy Car, SCOTT is Primary Nurse. me1 20:17 Patient has correct armband on for positive identification. Bed in low position. Call me1 light in reach. Side rails up X 1. Provided Education on: POC. Verbalized understanding. . 20:17 No provider procedures requiring assistance completed. Patient did not have IV access me1 during this emergency room visit. Administered Medications: 20:16 Drug: Dexamethasone IM 10 mg IM once Route: IM; Site: right deltoid; me1 20:25 Follow up: Response: No adverse reaction me1 20:16 Drug: Famotidine PO 20 mg PO once Route: PO; me1 20:25 Follow up: Response: No adverse reaction me1 Medication: 20:17 VIS not applicable for this client. me1 Outcome: 20:08 Discharge ordered by . kb 20:29 Discharged to home ambulatory, me1 20:29 Condition: stable 20:29 Discharge instructions given to patient, Instructed on discharge instructions, follow up and referral plans. medication usage, Demonstrated understanding of instructions, follow-up care, medications, Prescriptions given X 2, 20:30 Patient left the ED. me1 Signatures: Snehal Alford, DEANDRA VENTURA-Gemma Stapleton, RN RN kc6 Emmy Car RN RN me1 Pati Arredondo 3
--- NOTE | 2024-02-04 20:09 | EDPHYS ---
Physician Documentation [facility] Name: Andrew Padilla Jr Age: 28 yrs Sex: Male : 1995 Arrival Date: 02/04/2024 Time: 19:53 Bed Treatment Private MD: ED Physician Blaze Israel HPI: 02/03 20:37 This 28 yrs old Male presents to ER via Ambulatory with complaints of Poison Flor. kb 20:37 Pt is a 28 year old female who presents for rash that started 3 days ago after coming kb into contact with poison flor while cutting trees. Reports rash is getting worse. . Historical: - Allergies: 20:05 NKA; kc6 - PMHx: 20:05 Anxiety; Depression; PTSD; kc6 - PSHx: 20:05 Appendectomy; kc6 - Immunization history:: Client reports receiving the 2nd dose of the Covid vaccine, Flu vaccine is up to date. - Infectious Disease History:: Denies. - Social history:: Smoking status: Patient reports the use of cigarette tobacco products, smokes one pack cigarettes per day. Reported history of juuling and/or vaping. ROS: 20:32 Constitutional: As per HPI kb Exam: 20:32 Constitutional: This is a well developed, well nourished patient who is awake, alert, kb and in no acute distress. Head/Face: Normocephalic, atraumatic. ENT: Moist Mucous membranes Cardiovascular: Regular rate Respiratory: Respirations even and unlabored. No increased work of breathing. Talking in full sentences MS/ Extremity: Pulses equal, no cyanosis. Neurovascular intact. Full, normal range of motion. Neuro: Awake and alert, GCS 15, oriented to person, place, time, and situation. Moves all extremities. Normal gait. 20:36 Skin: rash a moderate rash is noted, consistent with contact dermatitis, on the kb abdomen, right arm, left arm, right leg and left leg, Vital Signs: 20:02 BP 121 / 72; Pulse 85; Resp 17 S; Temp 98.4(O); Weight 86.18 kg (R); Height 5 ft. 8 in. kc6 (R); Pain 0/10; 20:29 BP 126 / 86; Pulse 81; Resp 16; Pulse Ox 99% ; me1 20:02 Body Mass Index 28.89 (86.18 kg, 172.72 cm) [facility] 20:02 Pain Scale: Adult kc6 MDM: 19:59 Patient medically screened. kb 20:37 Data reviewed: vital signs, nurses notes. kb 20:38 Differential diagnosis: impetigo, allergic reaction, parasite infection. Counseling: I kb had a detailed discussion with the patient and/or guardian regarding the historical points, exam findings, and any diagnostic results supporting the discharge/admit diagnosis, the need for outpatient follow up, a family practitioner, to return to the emergency department if symptoms worsen or persist or if there are any questions or concerns that arise at home. Administered Medications: 20:16 Drug: Dexamethasone IM 10 mg IM once Route: IM; Site: right deltoid; me1 20:25 Follow up: Response: No adverse reaction me1 20:16 Drug: Famotidine PO 20 mg PO once Route: PO; me1 20:25 Follow up: Response: No adverse reaction me1 Disposition Summary: 02/04/24 20:08 Discharge Ordered Notes: Location: Home kb Condition: Stable kb Diagnosis - Allergic contact dermatitis due to plants, except food kb Followup: kb - With: Emergency Department - When: As needed - Reason: Worsening of condition Followup: kb - With: Private Physician - When: 2 - 3 days - Reason: Recheck today's complaints, Continuance of care, Re-evaluation by your physician Discharge Instructions: - Discharge Summary Sheet kb - Poison Flor Dermatitis, [id number] kb - Contact Dermatitis, [id number] kb Forms: - Medication Reconciliation Form kb - Antibiotic Education kb - Prescription Opioid Use kb - Patient Portal Instructions kb - Leadership Thank You Letter kb Prescriptions: - Pepcid 20 mg Oral Tablet - take 1 tablet ORAL route every 12 hours for 5 days; 10 tablet; Refills: 0, kb Product Selection Permitted - Prednisone 20 mg Oral Tablet - take 1 tablet ORAL route once daily for 5 days; 5 tablet; Refills: 0, Product kb Selection Permitted Signatures: Snehal Alford FNP-C FNP-Ckb Campbell, Kaitlyn RN RN kc6 Emmy Car RN RN me1 Corrections: (The following items were deleted from the chart) 20:37 20:32 Constitutional: This is a well developed, well nourished patient who is awake, kb alert, and in no acute distress. Head/Face: Normocephalic, atraumatic. kb
[2024-02-04 20:43] VITALS: TEMP 98.4
[2024-02-04 20:44] VITALS: BP 126/86; O2SAT 99
== END 2024-02-04 20:30 | disposition home or self-care (01) ==
LOC: ER 19:53
DX: L23.7 Allergic contact dermatitis due to plants, except food (principal)
CPT/HCPCS: 96372; 99284; J1100

== ENCOUNTER 2024-02-06 19:38 | Emergency (ER) | payer SELFPAY ==
--- OUTSIDE RECORDS SUMMARY | 2024-02-06 19:42 | XMS REPORT | Continuity of Care Document ---
Author Name Unknown Address [address] [place] [address] [employer] Address [address] [place] [address] [address] [place] [address] Care Team Providers Care [address] Judge Name Role Phone Unavailable Unavailable Unavailable Encounters Start Date/Time End Date/Time Encounter Type Admission Type Attending Clinicians Care Facility Care Department Encounter ID Source 2024-01-31 13:14:09 2024-01-31 13:14:09 Outpatient [facility] [id number] [place]
[2024-02-06 20:23] LABS: Specific Gravity 1.011 (1.005-1.030); Sqamous Epithelial <5 /HPF (None Seen); Urine Bacteria <20 /HPF (<20); Urine Bilirubin NEGATIVE (Negative); Urine Blood 1+ (Negative); Urine Clarity Clear (Clear); Urine Color Light-Yellow (Yellow); Urine Culture Reflex Order NOT NEEDED; Urine Glucose NEGATIVE (Negative); Urine Ketones 1+ (Negative); Urine Microscopic Reflex YN ORDER UMIC; Urine Nitrite NEGATIVE (Negative); Urine Protein NEGATIVE (Negative); Urine RBC <5 /HPF (None Seen); Urine Urobilinogen Normal (Normal); Urine WBC <5 /HPF (<5)
[2024-02-06] MEDS ORDERED: ONDANSETRON 4 MG/2 ML VIAL ONE (20:36)
[2024-02-06] MEDS ORDERED: FAMOTIDINE 20 MG/2 ML VIAL IV ONE (20:37)
[2024-02-06] MEDS ORDERED: MORPHINE 4 MG/ML SYR ONE (20:37)
[2024-02-06] MEDS ORDERED: NA CHLORIDE 0.9% 1,000 ML ONE (20:37)
[2024-02-06 20:45] LABS: Absolute Eosinophils 0.1 K/uL (0-0.5); Absolute Monocytes 0.6 K/uL (0.1-1.3); Absolute Neutrophil 4.4 K/uL (1.8-8.0); Basophils % 0.4 % (0-1.3); Eosinophils % 1.8 % (0-4.4); Hematocrit 41.1 % (39.6-49.0); Lymphocytes % 16.3 % (15.3-44.8); MCH 30.8 pg (27.0-35.0); MCHC 34.1 g/dL (32.0-36.0); MCV 90.2 fL (80-100); MPV 7.6 fL (7.6-11.3); Monocytes % 10.2 % (3.3-12.3); Neutrophils % 71.3 % (41.7-73.7); Nucleated Red Blood Cells % 0.1 % (0-0); Platelets 218 thou/uL (152-406); RBC Red Blood Cell Count 4.55 M/uL (4.33-5.43); Red Cell Distribution Width 13.5 % (12.1-15.2)
[2024-02-06 21:04] LABS: Albumin 3.7 g/dL (3.4-5.0); Albumin/Globulin Ratio 1.1 (1.1-1.8); Anion Gap 10.2 mEq/L (5.0-15.0); Bilirubin Total 0.7 mg/dL (0.2-1.0); Globulin 3.3 g/dL (2.3-3.5); Potassium 3.2 mEq/L (3.5-5.1)
--- NOTE | 2024-02-06 21:59 | EDPHYS ---
Physician Documentation [facility] Name: Andrew Padilla Jr Age: 28 yrs Sex: Male : 1995 Arrival Date: 02/06/2024 Time: 19:38 Bed 18 Private MD: ED Physician Michael Canada HPI: 02/05 19:55 This 28 yrs old Male presents to ER via Ambulatory with complaints of Pain With cp Urination, Urinary Incontinence, Low Back Pain. 19:55 The patient presents to the emergency department with nausea, vomiting, that is cp intermittent, diarrhea, that is intermittent, abdominal pain. Onset: The symptoms/episode began/occurred 3 day(s) ago. Possible causes: unknown. Associated signs and symptoms: Pertinent positives: low back pain and urinary symptoms, Pertinent negatives: anorexia, constipation, fever. Severity of symptoms: in the emergency department the symptoms are unchanged despite home interventions. Historical: - Allergies: 19:47 NKA; tm6 - PMHx: 19:47 Anxiety; PTSD; Depression; tm6 - PSHx: 19:47 Appendectomy; tm6 - Immunization history:: Client reports receiving the 2nd dose of the Covid vaccine. - Infectious Disease History:: Denies. - Social history:: Smoking status: Patient reports the use of cigarette tobacco products, smokes one pack cigarettes per day. Patient uses alcohol, occasionally. ROS: 20:00 Abdomen/GI: Positive for abdominal pain, nausea, vomiting, and diarrhea, cp 20:00 Constitutional: Negative for body aches, chills, fever, cp 20:00 Back: Positive for low back pain, 20:00 Eyes: Negative for injury, pain, redness, and discharge, cp 20:00 ENT: Negative for drainage from ear(s), ear pain, sore throat, difficulty swallowing, difficulty handling secretions, 20:00 Cardiovascular: Negative for chest pain, edema, palpitations, 20:00 Respiratory: Negative for shortness of breath, wheezing, 20:00 Neuro: Negative for altered mental status, dizziness, headache, weakness, 20:00 All other systems are negative, cp Exam: 20:05 Constitutional: The patient appears in no acute distress, alert, awake, non-toxic, well cp developed, well nourished, 20:05 Head/Face: Normocephalic, atraumatic. cp 20:05 Eyes: Periorbital structures: appear normal, Conjunctiva: normal, no exudate, no injection, Sclera: no appreciated abnormality, Lids and lashes: appear normal, bilaterally, 20:05 ENT: External ear(s): are unremarkable, Nose: is normal, Mouth: Lips: moist, Oral mucosa: pink and intact, moist, Posterior pharynx: Airway: no evidence of obstruction, patent, Tonsils: no enlargement, no erythema, no exudate, erythema, is not appreciated, exudate, is not appreciated, 20:05 Neck: ROM/movement: is normal, is supple, without pain, no range of motions limitations, 20:05 Chest/axilla: Inspection: normal, 20:05 Cardiovascular: Rate: normal, Rhythm: regular, 20:05 Respiratory: the patient does not display signs of respiratory distress, Respirations: normal, no use of accessory muscles, no retractions, labored breathing, is not present, Breath sounds: are clear throughout, no decreased breath sounds, no stridor, no wheezing, 20:05 Abdomen/GI: Inspection: abdomen appears normal, Bowel sounds: active, all quadrants, Palpation: soft, in all quadrants, mild abdominal tenderness, in all quadrants, rebound tenderness, is not appreciated, involuntary guarding, is not appreciated, 20:05 Back: CVA tenderness, that is mild, is noted bilaterally, cp 20:05 Skin: no rash present. cp 20:05 Neuro: Orientation: to person, place \T\ time. Mentation: is normal, Motor: moves all fours, strength is normal, Sensation: is normal, Vital Signs: 19:46 Pulse 88; Resp 18; Temp 99(O); Pulse Ox 99% on R/A; Weight 86.18 kg; Height 5 ft. 8 in. tm6 ; Pain 5/10; 19:48 BP 121 / 67; tm6 20:05 BP 110 / 73; Pulse 85; Resp 17; Temp 99; Pulse Ox 97% ; Pain 5/10; bm8 20:54 BP 113 / 70; Pulse 76; Resp 17; Temp 99; Pulse Ox 97% ; Pain 5/10; bm8 21:48 BP 109 / 65; Pulse 65; Resp 17; Temp 99; Pulse Ox 100% ; Pain 0/10; bm8 19:46 Body Mass Index 28.89 (86.18 kg, 172.72 cm) tm6 19:46 Pain Scale: Adult tm6 20:05 Pain Scale: Adult bm8 20:54 Pain Scale: Adult bm8 21:48 Pain Scale: Adult bm8 [place] Coma Score: 20:05 Eye Response: spontaneous(4). Motor Response: obeys commands(6). Verbal Response: bm8 oriented(5). Total: 15. 20:54 Eye Response: spontaneous(4). Motor Response: obeys commands(6). Verbal Response: bm8 oriented(5). Total: 15. 21:48 Eye Response: spontaneous(4). Motor Response: obeys commands(6). Verbal Response: bm8 oriented(5). Total: 15. MDM: 19:51 Patient medically screened. cp 21:58 Data reviewed: vital signs, nurses notes, lab test result(s), and as a result, I will cp discharge patient. 21:58 Differential diagnosis: gastritis, cholecystitis, pancreatitis, diverticulitis, viral cp gastroenteritis, gastroenteritis. Counseling: I had a detailed discussion with the patient and/or guardian regarding the historical points, exam findings, and any diagnostic results supporting the discharge/admit diagnosis, lab results, radiology results, to return to the emergency department if symptoms worsen or persist or if there are any questions or concerns that arise at home. Response to treatment: the patient's symptoms have markedly improved after treatment, and as a result, I will discharge patient. 02/05 19:52 Order name: Urinalysis w/ reflexes; Complete Time: 20:26 cp 02/05 20:28 Order name: CBC with Diff; Complete Time: 21:30 cp 02/05 20:28 Order name: CMP; Complete Time: 21:30 cp 02/05 20:28 Order name: Lipase; Complete Time: 21:30 cp 02/05 20:28 Order name: IV Saline Lock; Complete Time: 20:49 cp 02/05 20:28 Order name: Labs collected and sent; Complete Time: 20:49 cp 02/05 21:31 Order name: PO challenge; Complete Time: 21:37 cp Administered Medications: 20:49 Drug: NS 0.9% IV 1000 ml IV at 1 bolus Per protocol; 1000 mL bolus Route: IV; Rate: 1 bm8 bolus; Site: right antecubital; 21:37 Follow up: Response: No adverse reaction; IV Status: Completed infusion; IV Intake: bm8 1000ml 20:49 Drug: Famotidine IVP 20 mg IVP once; dilute with 10 mL 0.9% NaCl; give over 2 minutes bm8 Route: IVP; Site: right antecubital; 21:37 Follow up: Response: No adverse reaction bm8 20:49 Drug: Ondansetron IVP 4 mg IVP once; over 2 minutes Route: IVP; Site: right antecubital;bm8 21:37 Follow up: Response: No adverse reaction bm8 20:49 Drug: morphine IVP or IV 4 mg IVP once over 4 mins Route: IVP; Infused Over: 4 mins; bm8 Site: right antecubital; 21:37 Follow up: Response: No adverse reaction bm8 22:17 Drug: Loperamide PO 4 mg PO once Route: PO; bm8 22:23 Follow up: Response: No adverse reaction bm8 Disposition Summary: 02/06/24 21:59 Discharge Ordered Notes: Location: Home cp Problem: new cp Symptoms: have improved cp Condition: Stable cp Diagnosis - Nausea with vomiting, unspecified cp - Diarrhea, unspecified cp Followup: cp - With: Private Physician - When: 2 - 3 days - Reason: Worsening of condition Discharge Instructions: - Discharge Summary Sheet cp - Food Choices to Help Relieve Diarrhea, Adult cp - Diarrhea, Adult cp - Nausea and Vomiting, Adult cp Forms: - Medication Reconciliation Form cp - Antibiotic Education cp - Prescription Opioid Use cp - Patient Portal Instructions cp - Leadership Thank You Letter cp - Work release form bm8 Prescriptions: - Pepcid 20 mg Oral Tablet - take 1 tablet ORAL route every 12 hours for 10 days; 20 tablet; Refills: 0, cp Product Selection Permitted - Zofran 4 mg Oral Tablet - take 1 tablet ORAL route every 12 hours As needed; 20 tablet; Refills: 0, cp Product Selection Permitted - Lomotil 2.5-0.025 mg Oral Tablet - take 1 tablet ORAL route every 6 hours As needed; 20 tablet; Refills: 0, cp Product Selection Permitted Addendum: 02/11/2024 06:58 Co-signature as Attending Physician, Michael Canada MD I reviewed the patient's care r n provided by the Advanced Practice Provider and agree with the diagnosis and treatment plan. Signatures: Dispatcher [facility] Michael Huber MD MD rn Aaron Mendieta PA PA cp Masterson, Tawney, RN RN tm6 Avtar Cordova RN RN bm8
--- NOTE | 2024-02-06 21:59 | ER ---
Nurse's Notes [facility] Name: Andrew Padilla Jr Age: 28 yrs Sex: Male : 1995 Arrival Date: 02/06/2024 Time: 19:38 Bed 18 Private MD: Diagnosis: Nausea with vomiting, unspecified;Diarrhea, unspecified Presentation: 02/05 19:48 Coronavirus screen: Vaccine status: Patient reports receiving the 2nd dose of the covid tm6 vaccine. Ebola Screen: Patient negative for fever greater than or equal to 101.5 degrees Fahrenheit, and additional compatible Ebola Virus Disease symptoms Patient denies exposure to infectious person. Patient denies travel to an Ebola-affected area in the 21 days before illness onset. No symptoms or risks identified at this time. Initial Sepsis Screen: Does the patient meet any 2 criteria? No. Patient's initial sepsis screen is negative. Does the patient have a suspected source of infection? No. Patient's initial sepsis screen is negative. Risk Assessment: Do you want to hurt yourself or someone else? Patient reports no desire to harm self or others. 19:48 Method Of Arrival: Ambulatory tm6 19:48 Acuity: [place] 3 tm6 19:48 Chief complaint: Patient states: I have been having diarrhea and nausea and vomiting x3 tm6 days. Lower back, like my kidneys are hurting. Onset of symptoms was February 04, 2024. Triage Assessment: 19:48 General: Appears in no apparent distress. uncomfortable, Behavior is calm, cooperative. tm6 Pain: Complains of pain in left low back and right low back Pain currently is 5 out of 10 on a pain scale. EENT: No signs and/or symptoms were reported regarding the EENT system. Neuro: Level of Consciousness is awake, alert, obeys commands, Oriented to person, place, time, situation. Cardiovascular: Patient's skin is warm and dry. Respiratory: Reports Airway is patent Respiratory effort is even, unlabored, Respiratory pattern is regular, symmetrical. GI: Reports diarrhea, nausea, vomiting, since x3 days. GI: Abdomen is flat, non-distended. : Reports pain flank(s), pain with urination. Derm: No signs and/or symptoms reported regarding the dermatologic system. Musculoskeletal: No signs and/or symptoms reported regarding the musculoskeletal system. Historical: - Allergies: 19:47 NKA; tm6 - PMHx: 19:47 Anxiety; PTSD; Depression; tm6 - PSHx: 19:47 Appendectomy; tm6 - Immunization history:: Client reports receiving the 2nd dose of the Covid vaccine. - Infectious Disease History:: Denies. - Social history:: Smoking status: Patient reports the use of cigarette tobacco products, smokes one pack cigarettes per day. Patient uses alcohol, occasionally. Screenin:05 [facility] ED Fall Risk Assessment (Adult) History of falling in the last 3 months, bm8 including since admission No falls in past 3 months (0 pts) Confusion or Disorientation No (0 pts) Intoxicated or Sedated No (0 pts) Impaired Gait No (0 pts) Mobility Assist Device Used No (0 pt) Altered Elimination No (0 pt) Score/Fall Risk Level 0 - 2 = Low Risk Oriented to surroundings, Maintained a safe environment, Educated pt \T\ family on fall prevention, incl call for assistance when getting out of bed, Provided non-skid footwear, Hourly rounding (assess needs \T\ fall precautionary measures) done, Used ambulatory aids as needed (educated on \T\ assisted with), Used gait belt as appropriate. Abuse screen: Denies threats or abuse. Nutritional screening: No deficits noted. Tuberculosis screening: No symptoms or risk factors identified. Assessment: 20:05 General: Appears in no apparent distress. comfortable, Behavior is calm, cooperative, bm8 appropriate for age. Pain: Complains of pain in back and right low back and left low back Pain does not radiate. Pain currently is 5 out of 10 on a pain scale. Quality of pain is described as aching. Neuro: No deficits noted. Level of Consciousness is awake, alert, obeys commands, Oriented to person, place, time, situation, Appropriate for age. Cardiovascular: No deficits noted. Capillary refill < 3 seconds in bilateral fingers toes Patient's skin is warm and dry. Respiratory: Airway is patent Respiratory effort is even, unlabored, Respiratory pattern is regular, symmetrical. GI: Reports diarrhea, intolerance of fluids, intolerance of food, nausea, vomiting. : Urine is clear, Reports burning with urination, incontinence, pain in lower back. EENT: No signs and/or symptoms were reported regarding the EENT system. Derm: No signs and/or symptoms reported regarding the dermatologic system. Musculoskeletal: No signs and/or symptoms reported regarding the musculoskeletal system. 20:54 Reassessment: Patient appears in no apparent distress at this time. No changes from bm8 previously documented assessment. Patient and/or family updated on plan of care and expected duration. Pain level reassessed. Patient is alert, oriented x 3, equal unlabored respirations, skin warm/dry/pink. 21:48 Reassessment: Patient appears in no apparent distress at this time. Patient and/or bm8 family updated on plan of care and expected duration. Pain level reassessed. Patient is alert, oriented x 3, equal unlabored respirations, skin warm/dry/pink. Patient denies pain at this time. Patient states feeling better. Patient states symptoms have improved. Vital Signs: 19:46 Pulse 88; Resp 18; Temp 99(O); Pulse Ox 99% on R/A; Weight 86.18 kg; Height 5 ft. 8 in. tm6 ; Pain 5/10; 19:48 BP 121 / 67; tm6 20:05 BP 110 / 73; Pulse 85; Resp 17; Temp 99; Pulse Ox 97% ; Pain 5/10; bm8 20:54 BP 113 / 70; Pulse 76; Resp 17; Temp 99; Pulse Ox 97% ; Pain 5/10; bm8 21:48 BP 109 / 65; Pulse 65; Resp 17; Temp 99; Pulse Ox 100% ; Pain 0/10; bm8 19:46 Body Mass Index 28.89 (86.18 kg, 172.72 cm) tm6 19:46 Pain Scale: Adult tm6 20:05 Pain Scale: Adult bm8 20:54 Pain Scale: Adult bm8 21:48 Pain Scale: Adult bm8 [place] Coma Score: 20:05 Eye Response: spontaneous(4). Motor Response: obeys commands(6). Verbal Response: bm8 oriented(5). Total: 15. 20:54 Eye Response: spontaneous(4). Motor Response: obeys commands(6). Verbal Response: bm8 oriented(5). Total: 15. 21:48 Eye Response: spontaneous(4). Motor Response: obeys commands(6). Verbal Response: bm8 oriented(5). Total: 15. ED Course: 19:40 Patient arrived in ED. jj6 19:41 Page, Aaron, PA is PHCP. cp 19:41 Michael Canada MD is Attending Physician. cp 19:48 Triage completed. tm6 19:51 Arm band placed on right wrist. tm6 19:56 Avtar Cordova, RN is Primary Nurse. bm8 20:05 Patient has correct armband on for positive identification. Bed in low position. Call bm8 light in reach. Side rails up X 1. Adult w/ patient. Client placed on continuous cardiac and pulse oximetry monitoring. NIBP monitoring applied. Pulse ox on. NIBP on. Door closed. Noise minimized. Warm blanket given. Verbal reassurance given. Head of bed elevated. 20:05 No provider procedures requiring assistance completed. Urine collected: clean catch bm8 specimen, clear. 20:49 Initial lab(s) drawn, by me, sent to lab. Inserted saline lock: 20 gauge in right bm8 antecubital area, using aseptic technique. Blood collected. Flushed with 10 mL NS. 21:48 Provided Education on: post er care. bm8 22:24 IV discontinued, intact, bleeding controlled, No redness/swelling at site. Pressure bm8 dressing applied. Administered Medications: 20:49 Drug: NS 0.9% IV 1000 ml IV at 1 bolus Per protocol; 1000 mL bolus Route: IV; Rate: 1 bm8 bolus; Site: right antecubital; 21:37 Follow up: Response: No adverse reaction; IV Status: Completed infusion; IV Intake: bm8 1000ml 20:49 Drug: Famotidine IVP 20 mg IVP once; dilute with 10 mL 0.9% NaCl; give over 2 minutes bm8 Route: IVP; Site: right antecubital; 21:37 Follow up: Response: No adverse reaction bm8 20:49 Drug: Ondansetron IVP 4 mg IVP once; over 2 minutes Route: IVP; Site: right antecubital;bm8 21:37 Follow up: Response: No adverse reaction bm8 20:49 Drug: morphine IVP or IV 4 mg IVP once over 4 mins Route: IVP; Infused Over: 4 mins; bm8 Site: right antecubital; 21:37 Follow up: Response: No adverse reaction bm8 22:17 Drug: Loperamide PO 4 mg PO once Route: PO; bm8 22:23 Follow up: Response: No adverse reaction bm8 Medication: 20:05 VIS not applicable for this client. bm8 Intake: 21:37 IV: 1000ml; Total: 1000ml. bm8 Outcome: 21:59 Discharge ordered by . cp 22:24 Discharged to home ambulatory, bm8 22:24 Condition: stable 22:24 Discharge instructions given to patient, family, Instructed on discharge instructions, follow up and referral plans. no drinking with medication, no driving heavy equipment, medication usage, safety practices, Demonstrated understanding of instructions, follow-up care, medications, Prescriptions given X 3, 22:24 Patient left the ED. bm8 Signatures: Aaron Mendieta PA PA Natasha Kendall jj6 Meño Cueva RN RN tm6 Avtar Cordova RN RN bm8
[2024-02-06] MEDS ORDERED: LOPERAMIDE HCL 2 MG CAPSULE ONE (22:18)
[2024-02-06 22:52] VITALS: TEMP 99
[2024-02-06 22:58] VITALS: BP 109/65; O2SAT 100
== END 2024-02-06 22:24 | disposition home or self-care (01) ==
LOC: ER 19:38
DX: R11.2 Nausea with vomiting, unspecified (principal); R19.7 Diarrhea, unspecified; F17.210 Nicotine dependence, cigarettes, uncomplicated
CPT/HCPCS: 36415; 80053; 81001; 83690; 85025; 96361; 96374; 96375; 99284; J2405; J7030

== ENCOUNTER 2024-04-21 17:22 | Emergency (ER) | payer SELFPAY ==
--- OUTSIDE RECORDS SUMMARY | 2024-04-21 17:25 | XMS REPORT | Continuity of Care Document ---
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
--- NOTE | 2024-04-21 18:13 | RAD REPORT ---
EXAMINATION: XR RIGHT HUMERUS HISTORY: PAIN RIGHT TECHNIQUE: Multiple views of the right humerus performed. COMPARISON: None FINDINGS: No bone or joint abnormality detected.
[2024-04-21] MEDS ORDERED: SMZ./TMP. 800/160 MG TABLET ONE (19:48)
[2024-04-21] MEDS ORDERED: CEPHALEXIN 250 MG CAP ONE (19:48)
--- NOTE | 2024-04-21 20:29 | ER ---
Nurse's Notes [facility] Name: Andrew Padilla Jr Age: 28 yrs Sex: Male : 1995 Arrival Date: 04/21/2024 Time: 17:22 Bed 10 Private MD: Diagnosis: Strain of other muscles, fascia and tendons at shoulder and upper arm level, right arm;Cellulitis of right upper limb Presentation: 04/21 17:41 Chief complaint: Patient states: R arm pain, dx w/ cellulitis yesterday at [place], ph prescribed antibiotics but has not picked them up yet, was pulling down a garage door and started having increased pain in R arm. Coronavirus screen: Vaccine status: Patient reports receiving the 2nd dose of the covid vaccine. Ebola Screen: No symptoms or risks identified at this time. Initial Sepsis Screen: Does the patient meet any 2 criteria? No. Patient's initial sepsis screen is negative. Does the patient have a suspected source of infection? No. Patient's initial sepsis screen is negative. Risk Assessment: Do you want to hurt yourself or someone else? Patient reports no desire to harm self or others. Onset of symptoms was April 21, 2024. 17:41 Method Of Arrival: Ambulatory 17:41 Acuity: [place] 4 ph Historical: - Allergies: 17:44 No Known Allergies; ph - PMHx: 17:44 Anxiety; Depression; PTSD; ph - PSHx: 17:44 Appendectomy; ph - Social history:: Smoking status: Patient reports the use of cigarette tobacco products, smokes one-half pack cigarettes per day, Reported history of juuling and/or vaping. Screenin:54 [facility] ED Fall Risk Assessment (Adult) History of falling in the last 3 months, jb4 including since admission No falls in past 3 months (0 pts) Confusion or Disorientation No (0 pts) Intoxicated or Sedated No (0 pts) Impaired Gait No (0 pts) Mobility Assist Device Used No (0 pt) Altered Elimination No (0 pt) Score/Fall Risk Level 0 - 2 = Low Risk Oriented to surroundings, Maintained a safe environment. Abuse screen: Denies threats or abuse. Nutritional screening: No deficits noted. Tuberculosis screening: No symptoms or risk factors identified. Assessment: 19:59 General: Appears in no apparent distress. uncomfortable, Behavior is calm, cooperative, jb4 appropriate for age. Pain: Complains of pain in right arm Pain does not radiate. Pain currently is 6 out of 10 on a pain scale. Neuro: Level of Consciousness is awake, alert, obeys commands, Oriented to person, place, time, situation. Cardiovascular: Patient's skin is warm and dry. Respiratory: Airway is patent Respiratory effort is even, unlabored, Respiratory pattern is regular, symmetrical. Derm: Skin is intact, Skin is pink, warm \T\ dry. Musculoskeletal: Range of motion: limited in right shoulder and right elbow. 20:54 Reassessment: Patient appears in no apparent distress at this time. Patient and/or jb4 family updated on plan of care and expected duration. Pain level reassessed. Patient is alert, oriented x 3, equal unlabored respirations, skin warm/dry/pink. Patient states feeling better. Vital Signs: 17:41 Pulse 98; Resp 18; Temp 97.2; Pulse Ox 100% on R/A; Weight 83.91 kg; Height 5 ft. 9 in. ph ; 17:47 BP 118 / 59; ph 17:41 Body Mass Index 27.32 (83.91 kg, 175.26 cm) ph ED Course: 17:24 Patient arrived in ED. mg5 17:25 [facility]nehal [facility]ford [facility]C [facility] kb 17:25 Uli Khan MD is Attending Physician. kb 17:44 Triage completed. ph 17:47 Arm band placed on Patient placed in waiting room, Patient notified of wait time. ph 18:09 Humerus Right XRAY In Process Unspecified. EDMS 19:59 Derrick Jones, SCOTT is Primary Nurse. jb4 20:54 Patient has correct armband on for positive identification. Bed in low position. Call jb4 light in reach. Side rails up X 1. Provided Education on: discharge instructions.. 20:54 No provider procedures requiring assistance completed. Patient did not have IV access jb4 during this emergency room visit. Administered Medications: 19:58 Drug: Trimethoprim-Sulfamethoxazole PO (160 mg-800 mg (DS) 1 tablet PO once Route: PO; jb4 19:58 Drug: Cephalexin PO 500 mg PO once Route: PO; jb4 Medication: 20:54 VIS not applicable for this client. jb4 Outcome: 20:28 Discharge ordered by MD. kb 20:54 Discharged to home ambulatory, with family, jb4 20:54 Condition: stable 20:54 Discharge instructions given to patient, Instructed on discharge instructions, follow up and referral plans. medication usage, Demonstrated understanding of instructions, follow-up care, medications, Prescriptions given X 1, 20:55 Patient left the ED. jb4 Signatures: Dispatcher [employer] EDMS Snehal Alford, LORENZO-Cassius VENTURA-Jessica Holt RN RN Derrick Jones RN RN jb4 Yeimy Mandel mg5
--- NOTE | 2024-04-21 20:29 | EDPHYS ---
Physician Documentation [facility] Name: Andrew Padilal Jr Age: 28 yrs Sex: Male : 1995 Arrival Date: 04/21/2024 Time: 17:22 Bed 10 Private MD: ED Physician Uli Khan HPI: 04/21 20:49 This 28 yrs old Male presents to ER via Ambulatory with complaints of Arm Injury. kb 20:49 Pt is a 28 year old male who presents for pain to right upper arm after pulling a kb garage door down today. Pt also reports he was diagnosed with cellulitis to right arm yesterday at [facility] but didn't lemon picker his antibiotic prescription yet. . Historical: - Allergies: 17:44 No Known Allergies; ph - PMHx: 17:44 Anxiety; Depression; PTSD; ph - PSHx: 17:44 Appendectomy; ph - Social history:: Smoking status: Patient reports the use of cigarette tobacco products, smokes one-half pack cigarettes per day, Reported history of juuling and/or vaping. ROS: 20:46 Constitutional: As per HPI kb Exam: 20:46 Constitutional: This is a well developed, well nourished patient who is awake, alert, kb and in no acute distress. Head/Face: Normocephalic, atraumatic. ENT: Moist Mucous membranes Cardiovascular: Regular rate Respiratory: Respirations even and unlabored. No increased work of breathing. Talking in full sentences Neuro: Awake and alert, GCS 15, oriented to person, place, time, and situation. 20:46 Musculoskeletal/extremity: Extremities: grossly normal except: noted in the right upper arm: decreased ROM, pain, tenderness, ROM: limited active range of motion due to pain, Circulation is intact in all extremities. Sensation intact. 20:46 Skin: cellulitis, that is moderate, on the right antecubital area, Vital Signs: 17:41 Pulse 98; Resp 18; Temp 97.2; Pulse Ox 100% on R/A; Weight 83.91 kg; Height 5 ft. 9 in. ph ; 17:47 BP 118 / 59; ph 17:41 Body Mass Index 27.32 (83.91 kg, 175.26 cm) ph MDM: 17:25 Medical Screening Exam initiated kb 20:47 Differential diagnosis: closed fracture, strain. Data reviewed: vital signs, nurses kb notes. Historians other than the Patient: Parent: mother. Counseling: I had a detailed discussion with the patient and/or guardian regarding the historical points, exam findings, and any diagnostic results supporting the discharge/admit diagnosis, radiology results, the need for outpatient follow up, a family practitioner, to return to the emergency department if symptoms worsen or persist or if there are any questions or concerns that arise at home. ED course: Educated on importance of picking up antibiotic prescription first thing in the morning and taking entire course as prescribed. Verbal understanding received. . 04/21 17:42 Order name: Humerus Right XRAY; Complete Time: 18:14 kb 04/21 20:00 Order name: Sling; Complete Time: 20:12 kb Administered Medications: 19:58 Drug: Trimethoprim-Sulfamethoxazole PO (160 mg-800 mg (DS) 1 tablet PO once Route: PO; jb4 19:58 Drug: Cephalexin PO 500 mg PO once Route: PO; jb4 Disposition Summary: 04/21/24 20:28 Discharge Ordered Notes: Location: Home kb Condition: Stable kb Diagnosis - Strain of other muscles, fascia and tendons at shoulder and upper arm level, right kb arm - Cellulitis of right upper limb kb Followup: kb - With: Emergency Department - When: As needed - Reason: Worsening of condition Followup: kb - With: Private Physician - When: 2 - 3 days - Reason: Recheck today's complaints, Continuance of care, Re-evaluation by your physician Discharge Instructions: - Discharge Summary Sheet kb - Cellulitis, Adult, [id number] kb - Muscle Strain, [id number] kb Forms: - Work release form kb - Medication Reconciliation Form kb - Antibiotic Education kb - Prescription Opioid Use kb - Patient Portal Instructions kb - Leadership Thank You Letter kb Prescriptions: - Diclofenac Sodium 75 mg Oral tablet, delayed release (enteric coated) - take 1 tablet ORAL route 2 times per day As needed; 30 tablet; Refills: 0, kb Product Selection Permitted Signatures: Dispatcher [employer] Snehal Neal, Jessica Wisdom RN RN Derrick Conway RN RN jb4
[2024-04-21 21:00] VITALS: TEMP 97.2; O2SAT 100
[2024-04-21 21:01] VITALS: BP 118/59
== END 2024-04-21 20:55 | disposition home or self-care (01) ==
LOC: ER 17:22
DX: S46.811A Strain of other muscles, fascia and tendons at shoulder and upper arm level, right arm, initial encounter (principal)

== ENCOUNTER 2024-05-08 01:42 | Emergency (ER) | payer SELFPAY ==
--- OUTSIDE RECORDS SUMMARY | 2024-05-08 01:45 | XMS REPORT | Continuity of Care Document ---
Author Name Unknown Address [address] [place] [address] th[address] Address [address] [place] [address] [address] [place] [address] Care Team Providers Care Health Assessment And Treatment Teacher Name Role Phone Unavailable Unavailable Unavailable Encounters Start Date/Time End Date/Time Encounter Type Admission Type Attending Clinicians Care Facility Care Department Encounter ID Source 2024-01-31 13:14:09 2024-01-31 13:14:09 Outpatient [facility] [id number] [address] [place]
[2024-05-08] MEDS ORDERED: ONDANSETRON 4 MG/2 ML VIAL ONE (02:03)
[2024-05-08] MEDS ORDERED: NA CHLORIDE 0.9% 3,000 ML ONE (02:03)
[2024-05-08] MEDS ORDERED: ACTIVATED CHARCOAL 50 GM/240 ML ONE (02:09)
[2024-05-08 02:10] LABS: Absolute Basophils 0.1 K/uL (0-0.5); Absolute Eosinophils 0.1 K/uL (0-0.5); Absolute Lymphocytes (CBC) 1.5 K/uL (0.7-4.9); Absolute Monocytes 0.8 K/uL (0.1-1.3); Absolute Neutrophil 4.8 K/uL (1.8-8.0); Basophils % 1.4 % (0-1.3); Hematocrit 42.6 % (39.6-49.0); Hemoglobin 14.7 g/dL (13.6-17.9); MCH 30.7 pg (27.0-35.0); MCHC 34.4 g/dL (32.0-36.0); MCV 89.1 fL (80-100); MPV 7.4 fL (7.6-11.3); Monocytes % 11.4 % (3.3-12.3); Neutrophils % 65.2 % (41.7-73.7); Nucleated Red Blood Cells % 0.4 % (0-0); Platelets 298 thou/uL (152-406); RBC Red Blood Cell Count 4.79 M/uL (4.33-5.43); Red Cell Distribution Width 13.9 % (12.1-15.2)
[2024-05-08 02:15] LABS: PT Prothrombin Time 11.7 SECONDS (9.4-12.5); PTT, Activated Partial Thromb 38.9 SECONDS (24.3-36.9); Protime INR 1.05
[2024-05-08 02:24] LABS: Calcium Oxalate Crystals- Ur Few /HPF (None Seen); Specific Gravity > 1.030 (1.005-1.030); Sqamous Epithelial None Seen /HPF (None Seen); Urine Bacteria None Seen /HPF (<20); Urine Bilirubin NEGATIVE (Negative); Urine Blood Negative (Negative); Urine Clarity Turbid (Clear); Urine Color Yellow (Yellow); Urine Culture Reflex Order REFLEXED; Urine Glucose NEGATIVE (Negative); Urine Ketones TRACE (Negative); Urine Microscopic Reflex YN ORDER UMIC; Urine Mucus 3+ /HPF (None Seen); Urine Nitrite NEGATIVE (Negative); Urine Protein 1+ (Negative); Urine RBC <5 /HPF (None Seen); Urine Urobilinogen Normal (Normal); Urine WBC 20-50 /HPF (<5)
[2024-05-08 02:25] LABS: ALT/SGPT 27 U/L (16-61); AST/SGOT 17 U/L (15-37); Albumin 3.8 g/dL (3.4-5.0); Alkaline Phosphatase 59 U/L (45-117); Anion Gap 9.1 mEq/L (5.0-15.0); BUN Blood Urea Nitrogen 14 mg/dL (7-18); Bicarbonate 30 mEq/L (21-32); Bilirubin Total 0.7 mg/dL (0.2-1.0); Globulin 3.8 g/dL (2.3-3.5); Glomerular Filtration Rate 81 ml/min (=/>90); Glucose Level 110 mg/dL (74-106); Potassium 3.1 mEq/L (3.5-5.1); Protein, Total 7.6 g/dL (6.4-8.2); Sodium Level 140 mEq/L (136-145)
[2024-05-08 02:35] LABS: Barbiturates NEGATIVE (NEGATIVE); Benzodiazepines POSITIVE (NEGATIVE); Cocaine POSITIVE (NEGATIVE); METHAMPHETAM POSITIVE (NEGATIVE); Methadone NEGATIVE (NEGATIVE); Opiates NEGATIVE (NEGATIVE); Phencyclidine NEGATIVE (NEGATIVE); THC Cannibis POSITIVE (NEGATIVE)
[2024-05-08 02:36] LABS: Bilirubin Direct < 0.2 mg/dL (0-0.2); Bilirubin Indirect, Calculated 0.5 mg/dL (0.2-0.8)
--- NOTE | 2024-05-08 08:21 | ER ---
Nurse's Notes [facility] Name: Andrew Padilla Jr Age: 28 yrs Sex: Male : 1995 Arrival Date: 05/08/2024 Time: 01:42 Bed 3 Private MD: Diagnosis: Abuse of other non-psychoactive substances;Adjustment disorder with mixed anxiety and depressed mood;Post-traumatic stress disorder (PTSD);UTI/ Urinary tract infection, site not specified;Hypokalemia;Adverse effect of amphetamines;Cocaine abuse Presentation: 05/08 02:00 Chief complaint: Patient states: patient took 25-30 2mg xanax 30 minutes prior to al5 arrival. patient denies wanting to harm himself or others, states he took them because he recently lost his job and has been going through some stress. Coronavirus screen: At this time, the client does not indicate any symptoms associated with coronavirus-19. Ebola Screen: No symptoms or risks identified at this time. Initial Sepsis Screen: Does the patient meet any 2 criteria? HR > 90 bpm. No. Patient's initial sepsis screen is negative. Does the patient have a suspected source of infection? No. Patient's initial sepsis screen is negative. Risk Assessment: Do you want to hurt yourself or someone else? Patient reports no desire to harm self or others. Onset of symptoms was May 08, 2024. 02:00 Method Of Arrival: Wheelchair al5 02:00 Acuity: [place] 2 al5 Triage Assessment: 02:06 General: Appears in no apparent distress. Behavior is drowsy. Pain: Denies pain. EENT: al5 No signs and/or symptoms were reported regarding the EENT system. Neuro: Level of Consciousness is obeys commands, listless, stuporous. Cardiovascular: Capillary refill < 3 seconds Patient's skin is warm and dry. Respiratory: Airway is patent Respiratory effort is even, unlabored, shallow, Respiratory pattern is regular, symmetrical. GI: No signs and/or symptoms were reported involving the gastrointestinal system. Abdomen is flat, non-distended. : No signs and/or symptoms were reported regarding the genitourinary system. Derm: Skin is intact, is healthy with good turgor, Skin is pink, warm \\T\\ dry. normal. Musculoskeletal: No signs and/or symptoms reported regarding the musculoskeletal system. Historical: - Allergies: 02:05 NKA; al5 - Home Meds: 02:05 Xanax Oral [Active]; al5 - PMHx: 02:05 Anxiety; Depression; PTSD; al5 - PSHx: 02:05 Appendectomy; al5 - Immunization history:: Adult Immunizations up to date. - Infectious Disease History:: Denies. - Social history:: Smoking status: Patient reports the use of cigarette tobacco products, smokes one-half pack cigarettes per day. - Family history:: not pertinent. Screenin:10 [facility] ED Fall Risk Assessment (Adult) History of falling in the last 3 months, al5 including since admission No falls in past 3 months (0 pts) Confusion or Disorientation No (0 pts) Intoxicated or Sedated Yes (3 pts) Impaired Gait Yes (1 pt) Mobility Assist Device Used No (0 pt) Altered Elimination No (0 pt) Score/Fall Risk Level 3 or more points = High Risk Oriented to surroundings, Maintained a safe environment, Hourly rounding (assess needs \\T\\ fall precautionary measures) done, Apply high fall risk patient identification: yellow non skid footwear/ fall signage. Abuse screen: Denies threats or abuse. Denies injuries from another. Nutritional screening: No deficits noted. Tuberculosis screening: No symptoms or risk factors identified. Assessment: 02:10 Reassessment: see triage assessment. al5 02:20 Reassessment: spoke with barbra CHAVEZ from poison control. recommendation is for al5 symptomatic/supportive care. perform EKG, toxicology work up. watch out for superintendent track respiratory depression, hypotension, bradycardia, tachycardia. give activated charcoal, antiemetic, bolus fluids. do not give flumazenil as it can cause seizures in adults. call if tylenol and/or ibuprofen values are abnormal. watch patient for 8 hours or until patient returns back to baseline. . 03:30 Reassessment: No changes from previously documented assessment. Patient and/or family br2 updated on plan of care and expected duration. Pain level reassessed. Patient is alert, oriented x 3, equal unlabored respirations, skin warm/dry/pink. 05:00 Reassessment: No changes from previously documented assessment. Patient and/or family br2 updated on plan of care and expected duration. Pain level reassessed. Patient is alert, oriented x 3, equal unlabored respirations, skin warm/dry/pink. 06:18 Reassessment: Patient appears in no apparent distress at this time. No changes from al5 previously documented assessment. Patient and/or family updated on plan of care and expected duration. Pain level reassessed. Patient is alert, oriented x 3, equal unlabored respirations, skin warm/dry/pink. 07:00 Reassessment: Patient appears in no apparent distress at this time. No changes from bp previously documented assessment. Patient is alert, oriented x 3, equal unlabored respirations, skin warm/dry/pink. 08:36 Reassessment: DC ON HOLD FOR FAMILY TRANSPORT. bp 09:08 Reassessment: PT DC WITH FAMILY. bp Overdose: 02:10 [place] Suicide Severity Screening: "In the past month, have you wished you were ha1 or wished you could go to sleep and not wake up?" Patient responds "no." "In the past month, have you actually had any thoughts of killing yourself?" Patient responds "no." "In your lifetime, have you ever done anything, started to do anything, or prepared to do anything to end your life?" Patient responds "no." PATIENT STATES " I JUST TOOK THOSE PILLS BECAUSE I LIKE HOW THEY MAKE ME FEEL". 03:00 [place]oll Suicide Severity Screening: "In the past month, have you wished you were al5 or wished you could go to sleep and not wake up?" Patient responds "no." "In the past month, have you actually had any thoughts of killing yourself?" Patient responds "no." "In your lifetime, have you ever done anything, started to do anything, or prepared to do anything to end your life?" Patient responds "no.". Vital Signs: 02:00 BP 130 / 69; Pulse 113; Resp 18; Temp 98.1; Pulse Ox 100% on R/A; Weight 83.91 kg; al5 Height 5 ft. 9 in. ; 03:19 BP 114 / 61; Pulse 107; Resp 17 S; Pulse Ox 99% on R/A; br2 05:00 BP 168 / 70; Pulse 69; Resp 18; Pulse Ox 99% on R/A; br2 07:00 BP 102 / 47; Pulse 83; Resp 14; Pulse Ox 94% on R/A; ko1 08:36 BP 107 / 53; Pulse 79; Resp 14; Pulse Ox 96% ; bp 09:08 BP 107 / 65; Pulse 62; Resp 15; Pulse Ox 97% ; bp 02:00 Body Mass Index 27.32 (83.91 kg, 175.26 cm) al5 [place] Coma Score: 06:41 Eye Response: spontaneous(4). Motor Response: obeys commands(6). Verbal Response: sp4 oriented(5). Total: 15. ED Course: 01:44 Patient arrived in ED. rv1 01:46 Oliver Corea MD is Attending Physician. sp4 02:02 EKG done, by ED staff, reviewed by Oliver Corea MD. oe 02:03 Acetaminophen Sent. ha1 02:03 Basic Metabolic Panel Sent. ha1 02:03 CBC with Diff Sent. ha1 02:03 ETOH Level Sent. ha1 02:04 Hepatic Function Sent. ha1 02:04 PT-INR Sent. ha1 02:04 Ptt, Activated Sent. ha1 02:04 Salicylate Sent. ha1 02:05 Triage completed. al5 02:08 Arm band placed on right wrist. Patient placed in the treatment room, on a stretcher, al5 on cafeteria monitor, on pulse oximetry. 02:10 No provider procedures requiring assistance completed. al5 02:10 Patient has correct armband on for positive identification. Placed in gown. Bed in low al5 position. Call light in reach. Side rails up X2. Provided Education on: plan of care. 05:06 Lilian Mayorga RN is Primary Nurse. br2 08:04 Client placed on continuous cardiac and pulse oximetry monitoring. NIBP monitoring ko1 applied. satellite project site monitor on. Door closed. Noise minimized. Lights dimmed. Assisted with urinal. 08:05 Patient requests rest room assistance. ko1 08:20 John Mckeon MD is Referral Physician. lucy 09:09 IV discontinued, intact, bleeding controlled, No redness/swelling at site. Pressure bp dressing applied. Administered Medications: 02:19 Drug: Actidose-Sorbitol PO Suspension 100 grams PO once Route: PO; br2 03:00 Follow up: Response: No adverse reaction br2 02:19 Drug: Ondansetron IVP 8 mg IVP once; over 2 minutes Route: IVP; Site: left antecubital; br2 03:00 Follow up: Response: No adverse reaction br2 02:19 Drug: NS 0.9% IV 1000 ml IV at 1000 ml once; to be given as a bolus over 60 minutes br2 Route: IV; Rate: 1000 ml; Site: left antecubital; 05:07 Follow up: Response: No adverse reaction; IV Status: Completed infusion; IV Intake: br2 1000ml 02:19 Drug: NS 0.9% IV 1000 ml IV at 1000 ml once; to be given as a bolus over 60 minutes br2 Route: IV; Rate: 1000 ml; Site: left antecubital; 05:07 Follow up: Response: No adverse reaction; IV Status: Completed infusion; IV Intake: br2 1000ml 05:07 Drug: NS 0.9% IV 1000 ml IV at 125 ml/hr continuous Route: IV; Rate: 125 ml/hr; Site: br2 left antecubital; 09:10 Follow up: IV Status: Completed infusion bp 08:35 Drug: Potassium PO Effervescent Tablet 25 mEq PO once; dissolve in 4 ounces of water or bp juice Route: PO; 09:10 Follow up: Response: No adverse reaction bp 08:35 Drug: Ciprofloxacin PO 500 mg PO once Route: PO; bp 09:10 Follow up: Response: No adverse reaction bp Medication: 02:10 VIS not applicable for this client. al5 Intake: 05:07 IV: 1000ml; Total: 1000ml. br2 05:07 IV: 1000ml; Total: 2000ml. br2 Outcome: 08:21 Discharge ordered by . lucy 09:09 Discharged to home ambulatory, with family, bp 09:09 Condition: stable 09:09 Discharge instructions given to patient, Instructed on discharge instructions, follow up and referral plans. medication usage, Demonstrated understanding of instructions, follow-up care, medications, Prescriptions given X 1, 09:10 Patient left the ED. bp Signatures: Aaron Bautista MD MD cha Espinosa, Orlando oe Peltier, Brian, RN RN bp Ladi Alcaraz RN RN ha1 Shama Cat RN RN Lupis Mayorga Sergey, MD MD sp4 Kathy Gerber RN RN al5 Lilian Mayorga RN RN br2 Corrections: (The following items were deleted from the chart) 07:48 02:20 Reassessment: spoke with barbra CHAVEZ from poison control. recommendation is for al5 symptomatic/supportive care. watch out for superintendent track respiratory depression, hypotension, bradycardia, tachycardia. give activated charcoal, antiemetic, bolus fluids. do not give flumazenil as it can cause seizures in adults. call if tylenol and/or ibuprofen values are abnormal. watch patient for 8 hours or until patient returns back to baseline. al5
--- NOTE | 2024-05-08 08:21 | EDPHYS ---
Physician Documentation [facility] Name: Andrew Padilla Jr Age: 28 yrs Sex: Male : 1995 Arrival Date: 05/08/2024 Time: 01:42 Bed 3 Private MD: ED Physician Oliver Corea HPI: 05/08 01:47 This 28 yrs old Male presents to ER via Unassigned with complaints of sp4 Overdose on Xanax . 06:39 This is a 28-year-old male presents after consuming 2 mg Xanax tablets up to 30 tabs sp4 reported 30 minutes prior to arrival. He denied use any other drugs. Patient is here because he is feeling unwell. He denied suicidal ideation or attempt.. Historical: - Allergies: 02:05 NKA; al5 - Home Meds: 02:05 Xanax Oral [Active]; al5 - PMHx: 02:05 Anxiety; Depression; PTSD; al5 - PSHx: 02:05 Appendectomy; al5 - Immunization history:: Adult Immunizations up to date. - Infectious Disease History:: Denies. - Social history:: Smoking status: Patient reports the use of cigarette tobacco products, smokes one-half pack cigarettes per day. - Family history:: not pertinent. ROS: 06:41 Constitutional: Negative for fever, chills, and weight loss, positive for overdose, sp4 positive for feeling unwell 06:41 All other systems are negative, Exam: 06:41 Constitutional: This is a well developed, well nourished patient who is awake, alert, sp4 and in no acute distress. Head/Face: Normocephalic, atraumatic. Eyes: Pupils equal round and reactive to light, extra-ocular motions intact. Lids and lashes normal. Conjunctiva and sclera are not injected. Cornea within normal limits. Periorbital areas with no swelling, redness, or edema. ENT: Nares patent. No nasal discharge, no septal abnormalities noted. Tympanic membranes are normal and external auditory canals are clear. Oropharynx with no redness, swelling, or masses, exudates, or evidence of obstruction, uvula midline. Mucous membranes moist. Neck: Trachea midline, no thyromegaly or masses palpated, and no cervical lymphadenopathy. Supple, full range of motion without nuchal rigidity, or vertebral point tenderness. Chest/axilla: Normal chest wall appearance and motion. Nontender with no deformity. No lesions are appreciated. Cardiovascular: Regular rate and rhythm with a normal S1 and S2. No gallops, murmurs, or rubs. Normal PMI, no JVD. No pulse deficits. Respiratory: Lungs have equal breath sounds bilaterally, clear to auscultation and percussion. No rales, rhonchi or wheezes noted. No increased work of breathing, no retractions or nasal flaring. Abdomen/GI: Soft, with normal bowel sounds. No distension or tympany. No guarding or rebound. No evidence of tenderness throughout. Back: No spinal tenderness. No costovertebral tenderness. Skin: Warm, dry with normal turgor. Normal color with no rashes, no lesions, and no evidence of cellulitis. MS/ Extremity: Pulses equal, no cyanosis. Neurovascular intact. Full, normal range of motion. Neuro: Awake and alert, GCS 15, oriented to person, place, time, . Cranial nerves II-XII grossly intact. Motor strength 5/5 in all extremities. Sensory grossly intact. Psych: Awake, alert, with orientation to person, place patient appears mildly agitated 06:43 ECG was reviewed by the Attending Physician. EKG at 0 159 normal sinus rhythm rate sp4 100. Vital Signs: 02:00 BP 130 / 69; Pulse 113; Resp 18; Temp 98.1; Pulse Ox 100% on R/A; Weight 83.91 kg; al5 Height 5 ft. 9 in. ; 03:19 BP 114 / 61; Pulse 107; Resp 17 S; Pulse Ox 99% on R/A; br2 05:00 BP 168 / 70; Pulse 69; Resp 18; Pulse Ox 99% on R/A; br2 07:00 BP 102 / 47; Pulse 83; Resp 14; Pulse Ox 94% on R/A; ko1 08:36 BP 107 / 53; Pulse 79; Resp 14; Pulse Ox 96% ; bp 09:08 BP 107 / 65; Pulse 62; Resp 15; Pulse Ox 97% ; bp 02:00 Body Mass Index 27.32 (83.91 kg, 175.26 cm) al5 Jaime Coma Score: 06:41 Eye Response: spontaneous(4). Motor Response: obeys commands(6). Verbal Response: sp4 oriented(5). Total: 15. MDM: 01:56 Medical Screening Exam initiated sp4 08:10 Differential diagnosis: acute psychotic break, depression, psychosis secondary to sp4 non-compliance, Overdose. Data reviewed: vital signs, nurses notes, EMS record, old medical records, lab test result(s). Consideration of Admission/Observation Escalation of care including admission/observation considered. Transition of care: After a detail discussion of the patient's case, care is transferred to Aaron Bautista MD. ED course: Stable for discharge at 9 AM. 05/08 01:48 Order name: Acetaminophen; Complete Time: 06:36 4 05/08 01:48 Order name: Basic Metabolic Panel; Complete Time: 06:36 4 05/08 01:48 Order name: CBC with Diff; Complete Time: 02:26 4 05/08 01:48 Order name: ETOH Level; Complete Time: 02:26 4 05/08 01:48 Order name: Hepatic Function; Complete Time: 06:36 [facility] 05/08 01:48 Order name: PT-INR; Complete Time: 02:26 4 05/08 01:48 Order name: Ptt, Activated; Complete Time: 02:26 4 05/08 01:48 Order name: Salicylate; Complete Time: 06:36 4 05/08 01:48 Order name: Urinalysis w/ reflexes; Complete Time: 06:36 4 05/08 01:48 Order name: Urine Drug Screen; Complete Time: 06:36 4 05/08 02:46 Order name: Urine Culture [facility] 05/08 01:48 Order name: EKG; Complete Time: 01:48 4 05/08 01:48 Order name: EKG - Nurse/Tech; Complete Time: 02:02 [facility] 05/08 01:48 Order name: IV Saline Lock; Complete Time: 02:02 [facility] 05/08 01:48 Order name: Labs collected and sent; Complete Time: 02:03 [facility] 05/08 01:48 Order name: Suicide Screening ([place]); Complete Time: 06:37 4 05/08 08:23 Order name: PO challenge: juice; Complete Time: 08:27 lucy EC:59 Rate is 100 beats/min. Rhythm is regular, Normal Sinus Rhythm. QRS Mikado is Normal. IN sp4 interval is normal. QRS interval is normal. QT interval is normal. No Q waves. T waves are Normal. No ST changes noted. Clinical impression: No evidence of ischemia. Interpreted by me. Reviewed by me. Administered Medications: 02:19 Drug: Actidose-Sorbitol PO Suspension 100 grams PO once Route: PO; br2 03:00 Follow up: Response: No adverse reaction br2 02:19 Drug: Ondansetron IVP 8 mg IVP once; over 2 minutes Route: IVP; Site: left antecubital; br2 03:00 Follow up: Response: No adverse reaction br2 02:19 Drug: NS 0.9% IV 1000 ml IV at 1000 ml once; to be given as a bolus over 60 minutes br2 Route: IV; Rate: 1000 ml; Site: left antecubital; 05:07 Follow up: Response: No adverse reaction; IV Status: Completed infusion; IV Intake: br2 1000ml 02:19 Drug: NS 0.9% IV 1000 ml IV at 1000 ml once; to be given as a bolus over 60 minutes br2 Route: IV; Rate: 1000 ml; Site: left antecubital; 05:07 Follow up: Response: No adverse reaction; IV Status: Completed infusion; IV Intake: br2 1000ml 05:07 Drug: NS 0.9% IV 1000 ml IV at 125 ml/hr continuous Route: IV; Rate: 125 ml/hr; Site: br2 left antecubital; 09:10 Follow up: IV Status: Completed infusion bp 08:35 Drug: Potassium PO Effervescent Tablet 25 mEq PO once; dissolve in 4 ounces of water or bp juice Route: PO; 09:10 Follow up: Response: No adverse reaction bp 08:35 Drug: Ciprofloxacin PO 500 mg PO once Route: PO; bp 09:10 Follow up: Response: No adverse reaction bp Disposition Summary: 05/08/24 08:21 Discharge Ordered Notes: Location: Home lucy Problem: new lucy Symptoms: have improved lucy Condition: Stable lucy Diagnosis - Abuse of other non-psychoactive substances lucy - Adjustment disorder with mixed anxiety and depressed mood lucy - Post-traumatic stress disorder (PTSD) lucy - UTI/ Urinary tract infection, site not specified lucy - Hypokalemia lucy - Adverse effect of amphetamines lucy - Cocaine abuse lucy Followup: lucy - With: Private Physician - When: 2 - 3 days - Reason: Recheck today's complaints, Continuance of care, Re-evaluation by your physician Followup: lucy - With: John Mckeon MD - When: 2 - 3 days - Reason: Recheck today's complaints, Re-evaluation by your physician Discharge Instructions: - Discharge Summary Sheet lucy - Finding Treatment for Addiction lucy - Substance Use Disorder lucy - Urinary Tract Infection, Adult lucy - Urinary Tract Infection, Adult, [id number] lucy - Hypokalemia [facility] Forms: - Medication Reconciliation Form lucy - Antibiotic Education lucy - Prescription Opioid Use lucy - Patient Portal Instructions [facility] - Leadership Thank You Letter [facility] Prescriptions: - Cipro 500 mg Oral Tablet - take 1 tablet ORAL route every 12 hours for 7 days; 14 tablet; Refills: 0, lucy Product Selection Permitted Signatures: Dispatcher [employer] EDAaron Subramanian MD MD cha Peltier, Brian, RN RN bp Oliver Corea MD MD sp4 Kathy Gerber RN RN al5 Lilian Mayorga RN RN br2 Corrections: (The following items were deleted from the chart) 01:48 01:48 ACETAMINOPHEN+C.LAB.BRZ ordered. EDMS EDMS 01:48 01:48 BASIC METABOLIC PANEL+C.LAB.BRZ ordered. EDMS EDMS 01:48 01:48 CBC+H.LAB.BRZ ordered. EDMS EDMS 01:48 01:48 ETHANOL+C.LAB.BRZ ordered. EDMS EDMS 01:48 01:48 HEPATIC FUNCTION+C.LAB.BRZ ordered. EDMS EDMS 01:48 01:48 PROTIME (+INR)+COAG.LAB.BRZ ordered. EDMS EDMS 01:48 01:48 PTT, ACTIVATED+COAG.LAB.BRZ ordered. EDMS EDMS 01:48 01:48 SALICYLATE+C.LAB.BRZ ordered. EDMS EDMS 01:48 01:48 Urinalysis+U.LAB.BRZ ordered. EDMS EDMS 01:48 01:48 URINE DRUG SCREEN+UC.LAB.BRZ ordered. EDMS EDMS 07:22 01:48 Suicide Precautions ordered. sp4 bp 07:22 01:48 Judge ordered. sp4 bp
[2024-05-08] MEDS ORDERED: POTASSIUM 25 MEQ EFFERV TAB ONE (08:32)
[2024-05-08] MEDS ORDERED: CIPROFLOXACIN HCL 500 MG TAB ONE (08:32)
[2024-05-08 09:16] VITALS: TEMP 98.1
[2024-05-08 09:21] VITALS: BP 107/65; O2SAT 97
--- NOTE | 2024-05-11 10:21 | EKG ---
Test Date: 2024-05-08 Test Time: 01:59:51 Director [employer]: SARATH MEASUREMENT RESULTS: Intervals: Rate: 100 FL: 144 QRSD: 92 QT: 346 QTc: 446 [place]: P: 47 FL: 144 QRS: -7 T: 39 INTERPRETIVE STATEMENTS: Normal sinus rhythm Normal ECG Compared to ECG 09/14/2018 01:11:54 Sinus tachycardia no longer present Electronically Signed On 05-11-24 10:20:14 [address] [facility] [employer] by Robbie Varela
== END 2024-05-08 09:10 | disposition home or self-care (01) ==
LOC: ER 01:42
DX: F55.8 Abuse of other non-psychoactive substances (principal); F14.10 Cocaine abuse, uncomplicated; F43.23 Adjustment disorder with mixed anxiety and depressed mood; F43.10 Post-traumatic stress disorder, unspecified; N39.0 Urinary tract infection, site not specified; E87.6 Hypokalemia
CPT/HCPCS: 36415; 80048; 80076; 80143; 80179; 80307; 81001; 82077; 85025; 85610; 85730; 87086; 87088; 93005; J2405; J7030

== ENCOUNTER 2024-09-28 22:07 | Emergency (ER) | payer OTHER, SELFPAY ==
--- OUTSIDE RECORDS SUMMARY | 2024-09-28 22:09 | XMS REPORT | Continuity of Care Document ---
Author Name Unknown Address [address] [place], [place] [address] [place] Address [address] [place] [address]. [address] [place] [id number] Care Team Providers Care Connie Scratcher Name Role Phone Unavailable Unavailable Unavailable Encounters Start Date/Time End Date/Time Encounter Type Admission Type Attending Clinicians Care Facility Care Department Encounter ID Source 2024-01-31 13:14:09 2024-01-31 13:14:09 Outpatient [facility] [id number] [place]
[2024-09-28] MEDS ORDERED: METOCLOPRAMIDE 10 MG/2mL INJ ONE (23:23)
[2024-09-28] MEDS ORDERED: DIPHENHYDRAMINE 50 MG/ML VIAL ONE (23:23)
[2024-09-28] MEDS ORDERED: KETOROLAC 30 MG/ML INJ ONE (23:23)
[2024-09-28] MEDS ORDERED: FAMOTIDINE 20 MG/2 ML VIAL IV ONE (23:23)
[2024-09-28] MEDS ORDERED: NA CHLORIDE 0.9% 1,000 ML ONE (23:24)
[2024-09-28 23:27] LABS: Absolute Basophils 0.1 K/uL (0-0.5); Absolute Eosinophils 0.1 K/uL (0-0.5); Absolute Lymphocytes (CBC) 2.8 K/uL (0.7-4.9); Absolute Monocytes 0.7 K/uL (0.1-1.3); Absolute Neutrophil 4.7 K/uL (1.8-8.0); Basophils % 0.7 % (0-1.3); Eosinophils % 1.4 % (0-4.4); Hematocrit 43.1 % (39.6-49.0); Lymphocytes % 33.3 % (15.3-44.8); MCH 30.8 pg (27.0-35.0); MCHC 34.9 g/dL (32.0-36.0); MCV 88.3 fL (80-100); MPV 8.6 fL (7.6-11.3); Monocytes % 8.9 % (3.3-12.3); Neutrophils % 55.7 % (41.7-73.7); Nucleated Red Blood Cells % 0.1 % (0-0); Platelets 229 thou/uL (152-406); RBC Red Blood Cell Count 4.88 M/uL (4.33-5.43); Red Cell Distribution Width 13.8 % (12.1-15.2)
[2024-09-28 23:43] LABS: Albumin 3.8 g/dL (3.4-5.0); Anion Gap 5.5 mEq/L (5.0-15.0); Bilirubin Total 0.5 mg/dL (0.2-1.0); Globulin 3.7 g/dL (2.3-3.5); Potassium 3.5 mEq/L (3.5-5.1); Protein, Total 7.5 g/dL (6.4-8.2)
[2024-09-29 01:40] LABS: Band Neutrophils 6 % (0-1); Blood Morphology Comment NOT SEEN (NOT SEEN); Differential Total Cells Count 100; Eosinophils 1 % (0-3); Lymphocytes 31 % (15-42); Monocytes 6 % (0-10); Platelet Estimate ADEQ; Reactive Lymphocytes 8 %; Segmented Neutrophils 48 % (40-80)
--- NOTE | 2024-09-29 02:45 | RAD REPORT ---
EXAM DESCRIPTION: CT HEAD AND CERVICAL SPINE WITHOUT CONTRAST CLINICAL HISTORY: 29 years Male Pain. COMPARISON: None. TECHNIQUE: Images were obtained in axial, coronal and sagittal planes. No contrast administration. This exam was performed according to our departmental dose-optimization program which includes use of Automated Exposure Control, adjustment of the mA and/or kV according to patient size and/or use of iterative re construction technique. FINDINGS: CT brain: Ventricular system appears normal. No abnormal increased attenuation seen. No extra-axial f luid collections noted. No evidence for skull fracture. Sclerotic changes mastoid air cells bilaterally. Unremarkable paranasal sinuses. CT cervical spine: Height of the vertebral bodies is intact. Satisfactory alignment articular facets. Straightening cervical spine. Intact odontoid and predental space. Prevertebral soft tissues appear normal. Intact occipital condyles. Intact C1. Posterior elements intact on all levels. No abno rmalities in lung apices bilaterally. No focal disc protrusion. IMPRESSION: 1. No acute intracranial abnormality. No evidence for hemorrhage, mass lesion, or large acute infar ction. 2. No acute fracture or subluxation seen. Findings indicating muscle spasm. Electronically signed by: Haley Beltran MD 09/29/2024 12:26 AM CDT RP Due to temporary technical issues with the PACS/[employer] reporting system, reports are being radha d by the in-house radiologist without review as a courtesy to ensure prompt reporting the interpreting radiologist is fully responsible for the content of the report. Transcribed Date/Time: 09/29/2024 2:44 AM
--- NOTE | 2024-09-29 03:02 | EDPHYS ---
Physician Documentation [facility] Name: Andrew Padilla Jr Age: 29 yrs Sex: Male : 1995 Arrival Date: 09/28/2024 Time: 22:07 Bed 13 Private MD: ED Physician Oliver Corea HPI: 09/28 22:10 This 29 yrs old Other Race Male presents to ER via Unassigned with complaints of sp4 Headache. 09/29 21:07 Patient presents with several weeks of worsening posterior to lateral headaches. No sp4 similar headaches in the past.. Historical: - Allergies: 09/28 22:23 NKA; cp4 - PMHx: 22:23 Anxiety; Depression; PTSD; cp4 - PSHx: 22:23 Appendectomy; cp4 - Immunization history:: Adult Immunizations up to date. - Infectious Disease History:: Denies. - Social history:: Smoking status: Patient reports the use of cigarette tobacco products, smokes one pack cigarettes per day. - Family history:: not pertinent. ROS: 09/29 21:07 Constitutional: Negative for fever, chills, and weight loss, positive for headaches and sp4 nausea Eyes: Negative for injury, pain, redness, and discharge, All other systems are negative, Exam: 21:07 Constitutional: This is a well developed, well nourished patient who is awake, alert, sp4 and in no acute distress. Head/Face: Normocephalic, atraumatic. Eyes: Pupils equal round and reactive to light, extra-ocular motions intact. Lids and lashes normal. Conjunctiva and sclera are not injected. Cornea within normal limits. Periorbital areas with no swelling, redness, or edema. ENT: Nares patent. No nasal discharge, no septal abnormalities noted. Tympanic membranes are normal and external auditory canals are clear. Oropharynx with no redness, swelling, or masses, exudates, or evidence of obstruction, uvula midline. Mucous membranes moist. Neck: Trachea midline, no thyromegaly or masses palpated, and no cervical lymphadenopathy. Supple, full range of motion without nuchal rigidity, or vertebral point tenderness. Chest/axilla: Normal chest wall appearance and motion. Nontender with no deformity. No lesions are appreciated. Cardiovascular: Regular rate and rhythm with a normal S1 and S2. No gallops, murmurs, or rubs. Normal PMI, no JVD. No pulse deficits. Respiratory: Lungs have equal breath sounds bilaterally, clear to auscultation and percussion. No rales, rhonchi or wheezes noted. No increased work of breathing, no retractions or nasal flaring. Abdomen/GI: Soft, with normal bowel sounds. No distension or tympany. No guarding or rebound. No evidence of tenderness throughout. Back: No spinal tenderness. No costovertebral tenderness. Skin: Warm, dry with normal turgor. Normal color with no rashes, no lesions, and no evidence of cellulitis. MS/ Extremity: Pulses equal, no cyanosis. Neurovascular intact. Full, normal range of motion. Neuro: Awake and alert, GCS 15, oriented to person, place, time, and situation. Cranial nerves II-XII grossly intact. Motor strength 5/5 in all extremities. Sensory grossly intact. Psych: Awake, alert, with orientation to person, place and time. Behavior, mood, and affect are within normal limits Vital Signs: 09/28 22:21 BP 121 / 75; Pulse 82; Resp 18; Temp 98.4; Pulse Ox 98% ; Weight 83.91 kg; Height 5 ft. cp4 9 in. ; Pain 10/10; 23:41 BP 116 / 75; Pulse 72; Resp 18; Pulse Ox 98% ; Pain 6/10; rg5 09/29 00:40 BP 117 / 76; Pulse 71; Resp 18 S; Pain 0/10; rg5 02:30 BP 105 / 72; Pulse 75; Resp 17; Pulse Ox 99% on R/A; Pain 0/10; rg5 09/28 22:21 Body Mass Index 27.32 (83.91 kg, 175.26 cm) cp4 09/28 22:21 Pain Scale: Adult cp4 23:41 Pain Scale: Adult rg5 09/29 00:40 Pain Scale: Adult rg5 02:30 Pain Scale: Adult rg5 Arona Coma Score: 21:07 Eye Response: spontaneous(4). Motor Response: obeys commands(6). Verbal Response: sp4 oriented(5). Total: 15. 21:10 Eye Response: spontaneous(4). Motor Response: obeys commands(6). Verbal Response: sp4 oriented(5). Total: 15. MDM: 01:53 Medical Screening Exam initiated sp4 21:10 Differential diagnosis: cluster headache, hypoglycemia, hyponatremia, migraine, tension sp4 headache, vasomotor headache. Data reviewed: vital signs, nurses notes, lab test result(s), radiologic studies, CT scan. Consideration of Admission/Observation Escalation of care including admission/observation considered. ED course: Headache resolved. Workup is unremarkable. Patient stable for discharge home with as needed Fioricet. 09/28 22:55 Order name: CBC with Diff; Complete Time: 02:56 sp4 09/28 22:55 Order name: CMP; Complete Time: 02:56 sp4 09/28 23:35 Order name: Manual Differential; Complete Time: 02:56 EDMS 09/28 22:55 Order name: CT Head C Spine; Complete Time: 02:56 sp4 09/28 22:55 Order name: IV Saline Lock; Complete Time: 23:13 sp4 09/28 22:55 Order name: Labs collected and sent; Complete Time: 23:13 sp4 Administered Medications: 09/28 23:15 Drug: Famotidine IVP 20 mg IVP once; dilute with 10 mL 0.9% NaCl; give over 2 minutes rg5 Route: IVP; Site: right antecubital; 09/29 01:23 Follow up: Response: No adverse reaction; Pain is decreased 5 09/28 23:15 Drug: TORadol - Ketorolac IVP 30 mg IVP once Route: IVP; Site: right antecubital; [facility] 09/29 01:24 Follow up: Response: No adverse reaction; Pain is decreased [facility] 09/28 23:15 Drug: NS 0.9% IV 1000 ml IV at 1 bolus Per protocol; to be given as a bolus over 60 rg5 minutes Route: IV; Rate: 1 bolus; Site: right antecubital; 09/29 01:23 Follow up: IV Status: Completed infusion; IV Intake: 1000ml rg5 09/28 23:15 Drug: metoCLOPramide IVP 10 mg IVP once; over 1 to 2 minutes Route: IVP; Site: right rg5 antecubital; 09/29 01:23 Follow up: Response: No adverse reaction [facility] 09/28 23:15 Drug: diphenhydrAMINE IVP 25 mg IVP once Route: IVP; Site: right antecubital; rg5 09/29 01:23 Follow up: Response: No adverse reaction; Pain is decreased rg5 Disposition Summary: 09/29/24 03:01 Discharge Ordered Notes: Location: Home sp4 Problem: new sp4 Symptoms: have improved sp4 Condition: Stable sp4 Diagnosis - Tension-type headache sp4 Followup: sp4 - With: Derrell Knight MD - When: 7 - 10 days - Reason: Recheck today's complaints Discharge Instructions: - Tension Headache, Adult, [id number] sp4 - Discharge Summary Sheet rg5 Forms: - Patient Portal Instructions sp4 - Work release form br2 Prescriptions: - Fioricet 50-300-40 mg Oral capsule - take 1 capsule ORAL route every 6 hours PRN headache; 30 capsule; Refills: 0, sp4 Product Selection Permitted Signatures: Dispatcher [employer] Oliver Walters MD MD sp4 Sonya Blanco 4 Huy Oakley RN RN rg5
--- NOTE | 2024-09-29 03:02 | ER ---
Nurse's Notes [facility] Name: Andrew Padilla Jr Age: 29 yrs Sex: Male : 1995 Arrival Date: 09/28/2024 Time: 22:07 Bed 13 Private MD: Diagnosis: Tension-type headache Presentation: 09/28 22:21 Chief complaint: Patient states: migraine headaches x 3 months. Coronavirus screen: cp4 Client denies travel out of the [place] in the last 14 days. At this time, the client does not indicate any symptoms associated with coronavirus-19. Ebola Screen: Patient negative for fever greater than or equal to 101.5 degrees Fahrenheit, and additional compatible Ebola Virus Disease symptoms Patient denies exposure to infectious person. Patient denies travel to an Ebola-affected area in the 21 days before illness onset. No symptoms or risks identified at this time. Initial Sepsis Screen: Does the patient meet any 2 criteria? No. Patient's initial sepsis screen is negative. Does the patient have a suspected source of infection? No. Patient's initial sepsis screen is negative. Risk Assessment: Do you want to hurt yourself or someone else? Patient reports no desire to harm self or others. Onset of symptoms was July 2024. 22:21 Method Of Arrival: Ambulatory [facility] 22:21 Acuity: GARLAND 3 cp4 Triage Assessment: 22:23 Headache History: The patient has had previous headaches and this one is similar to cp4 previous episodes. General: Appears in no apparent distress. uncomfortable, Behavior is calm, cooperative, appropriate for age. Pain: Pain currently is 10 out of 10 on a pain scale. Pain began off and on for 3 months Also complains of no other associated symptoms. Neuro: Level of Consciousness is awake, alert, obeys commands, Oriented to person, place, time, situation. Historical: - Allergies: 22:23 NKA; cp4 - PMHx: 22:23 Anxiety; Depression; PTSD; cp4 - PSHx: 22:23 Appendectomy; cp4 - Immunization history:: Adult Immunizations up to date. - Infectious Disease History:: Denies. - Social history:: Smoking status: Patient reports the use of cigarette tobacco products, smokes one pack cigarettes per day. - Family history:: not pertinent. Screenin:30 [facility] ED Fall Risk Assessment (Adult) History of falling in the last 3 months, rg5 including since admission No falls in past 3 months (0 pts) Confusion or Disorientation No (0 pts) Intoxicated or Sedated No (0 pts) Impaired Gait No (0 pts) Mobility Assist Device Used No (0 pt) Altered Elimination No (0 pt) Score/Fall Risk Level 0 - 2 = Low Risk Oriented to surroundings, Maintained a safe environment, Hourly rounding (assess needs \T\ fall precautionary measures) done. Abuse screen: Denies threats or abuse. Nutritional screening: No deficits noted. Tuberculosis screening: No symptoms or risk factors identified. Assessment: 22:30 General: Appears in no apparent distress. comfortable, Behavior is calm, cooperative, rg5 appropriate for age. Pain: Complains of pain in head Pain currently is 7 out of 10 on a pain scale. Neuro: Level of Consciousness is awake, alert, obeys commands, Reports headache. Cardiovascular: Denies chest pain. Respiratory: Airway is patent Trachea midline Respiratory effort is even, unlabored, Respiratory pattern is regular, symmetrical. GI: Abdomen is flat, non-distended. : No signs and/or symptoms were reported regarding the genitourinary system. EENT: No deficits noted. Derm: Skin is intact, Skin is dry, Skin is normal, Skin temperature is warm. Musculoskeletal: Circulation, motion, and sensation intact. Range of motion:. 23:43 Reassessment: No changes from previously documented assessment. Patient and/or family rg5 updated on plan of care and expected duration. Pain level reassessed. Patient is alert, oriented x 3, equal unlabored respirations, skin warm/dry/pink. 09/29 00:30 Reassessment: No changes from previously documented assessment. Patient and/or family rg5 updated on plan of care and expected duration. Pain level reassessed. Patient is alert, oriented x 3, equal unlabored respirations, skin warm/dry/pink. 01:23 Reassessment: Patient and/or family updated on plan of care and expected duration. Pain rg5 level reassessed. Patient is alert, oriented x 3, equal unlabored respirations, skin warm/dry/pink. Patient states feeling better. Patient states symptoms have improved. 02:15 Reassessment: Patient and/or family updated on plan of care and expected duration. Pain rg5 level reassessed. Patient is alert, oriented x 3, equal unlabored respirations, skin warm/dry/pink. Patient states feeling better. 03:09 Reassessment: Patient and/or family updated on plan of care and expected duration. Pain rg5 level reassessed. Patient is alert, oriented x 3, equal unlabored respirations, skin warm/dry/pink. Patient states feeling better. Vital Signs: 09/28 22:21 BP 121 / 75; Pulse 82; Resp 18; Temp 98.4; Pulse Ox 98% ; Weight 83.91 kg; Height 5 ft. cp4 9 in. ; Pain 10/10; 23:41 BP 116 / 75; Pulse 72; Resp 18; Pulse Ox 98% ; Pain 6/10; rg5 09/29 00:40 BP 117 / 76; Pulse 71; Resp 18 S; Pain 0/10; rg5 02:30 BP 105 / 72; Pulse 75; Resp 17; Pulse Ox 99% on R/A; Pain 0/10; rg5 09/28 22:21 Body Mass Index 27.32 (83.91 kg, 175.26 cm) cp4 09/28 22:21 Pain Scale: Adult cp4 23:41 Pain Scale: Adult rg5 09/29 00:40 Pain Scale: Adult rg5 02:30 Pain Scale: Adult rg5 Jaime Coma Score: 21:07 Eye Response: spontaneous(4). Motor Response: obeys commands(6). Verbal Response: sp4 oriented(5). Total: 15. 21:10 Eye Response: spontaneous(4). Motor Response: obeys commands(6). Verbal Response: sp4 oriented(5). Total: 15. ED Course: 09/28 22:09 Patient arrived in ED. jj6 22:10 Oliver Corea MD is Attending Physician. sp4 22:22 Huy Oakley RN is Primary Nurse. rg5 22:23 Triage completed. cp4 22:23 Arm band placed on right wrist. Patient placed in waiting room. cp4 22:30 Patient has correct armband on for positive identification. Door closed. Noise rg5 minimized. Lights dimmed. 22:30 No provider procedures requiring assistance completed. rg5 23:12 Inserted saline lock: 20 gauge in right antecubital area, using aseptic technique. rk3 Blood collected. Flushed with 10 mL NS. 23:12 Initial lab(s) drawn, by me, sent to lab. rk3 23:41 CT Head C Spine In Process Unspecified. EDPA 09/29 03:01 Derrell Knight MD is Referral Physician. sp4 03:17 Provided Education on: post er care done. rg5 03:17 IV discontinued, bleeding controlled, No redness/swelling at site. Pressure dressing rg5 applied. Administered Medications: 09/28 23:15 Drug: Famotidine IVP 20 mg IVP once; dilute with 10 mL 0.9% NaCl; give over 2 minutes rg5 Route: IVP; Site: right antecubital; 09/29 01:23 Follow up: Response: No adverse reaction; Pain is decreased rg5 09/28 23:15 Drug: TORadol - Ketorolac IVP 30 mg IVP once Route: IVP; Site: right antecubital; rg5 09/29 01:24 Follow up: Response: No adverse reaction; Pain is decreased rg5 09/28 23:15 Drug: NS 0.9% IV 1000 ml IV at 1 bolus Per protocol; to be given as a bolus over 60 rg5 minutes Route: IV; Rate: 1 bolus; Site: right antecubital; 09/29 01:23 Follow up: IV Status: Completed infusion; IV Intake: 1000ml rg5 09/28 23:15 Drug: metoCLOPramide IVP 10 mg IVP once; over 1 to 2 minutes Route: IVP; Site: right rg5 antecubital; 09/29 01:23 Follow up: Response: No adverse reaction rg5 09/28 23:15 Drug: diphenhydrAMINE IVP 25 mg IVP once Route: IVP; Site: right antecubital; rg5 09/29 01:23 Follow up: Response: No adverse reaction; Pain is decreased rg5 Medication: 09/28 22:30 VIS not applicable for this client. rg5 Intake: 09/29 01:23 IV: 1000ml; Total: 1000ml. rg5 Outcome: 03:01 Discharge ordered by . sp4 03:17 Discharged to home ambulatory, rg5 03:17 Condition: stable 03:17 Discharge instructions given to patient, Instructed on discharge instructions, follow up and referral plans. Demonstrated understanding of instructions, follow-up care, medications, Prescriptions given X 1, 03:18 Patient left the ED. rg5 Signatures: Dispatcher [employer] EDMS Natasha Mayfield jj6 Oliver Corea MD MD sp4 Sonya Blanco cp4 Huy Oakley RN RN rg5 Anya New rk3
[2024-09-29 03:22] VITALS: TEMP 98.4
[2024-09-29 03:27] VITALS: BP 105/72; O2SAT 99
== END 2024-09-29 03:18 | disposition home or self-care (01) ==
LOC: ER 22:07
DX: G44.209 Tension-type headache, unspecified, not intractable (principal); F17.210 Nicotine dependence, cigarettes, uncomplicated
CPT/HCPCS: 96361; 85025; 36415; 80053; 70450; 72125; 96375; 96374; 99284; J2765; J1200; J7030

== ENCOUNTER 2025-04-02 07:24 | Emergency (ER) | payer OTHER ==
[2025-04-02] MEDS ORDERED: KETOROLAC 30 MG/ML INJ ONE (07:47)
[2025-04-02 07:53] LABS: Absolute Lymphocytes (CBC) 2.3 K/uL (0.7-4.9); Hematocrit 42.5 % (39.6-49.0); Hemoglobin 14.6 g/dL (13.6-17.9); MCH 30.7 pg (27.0-35.0); MCHC 34.3 g/dL (32.0-36.0); MCV 89.7 fL (80-100); MPV 8.2 fL (7.6-11.3); Nucleated RBC Absolute Count 0.0 (0-0); Nucleated Red Blood Cells % 0.0 % (0-0); RBC Red Blood Cell Count 4.74 M/uL (4.33-5.43); White Blood Count 6.10 thou/uL (4.3-10.9)
[2025-04-02 08:06] LABS: Anion Gap 6.2 mEq/L (5.0-15.0); BUN Blood Urea Nitrogen 10.0 mg/dL (7-18); Glucose Level 108.0 mg/dL (74-106); Potassium 3.2 mEq/L (3.5-5.1)
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
[2025-04-02 09:27] VITALS: TEMP 97.6
[2025-04-02 09:32] VITALS: BP 113/66; O2SAT 94
== END 2025-04-02 09:06 | disposition home or self-care (01) ==
LOC: ER 07:24
DX: S30.13XA Contusion of flank (latus) region, initial encounter (principal); V48.5XXA Car driver injured in noncollision transport accident in traffic accident, initial encounter; F17.210 Nicotine dependence, cigarettes, uncomplicated
CPT/HCPCS: 85025; 80048; 36415; 71260; 74177; 96374; 99284; Q9967; J1885